=== PATIENT | female | born 1960 ===

== ENCOUNTER → 2020-02-02 12:12 | Outpatient (CLI) | payer MEDICARE, OTHER, SELFPAY ==
[2020-02-03 09:43] LABS: COVID19 Sendout Not Detected (Not Detect)
== END ==
PROVIDERS: Visit Provider Registered Nurse
DX: Z01.812 Encounter for preprocedural laboratory examination (principal)
CPT/HCPCS: 87635

== ENCOUNTER 2020-08-08 09:59 | Inpatient (IN) | payer MEDICARE, OTHER, SELFPAY ==
[2020-08-08] VITALS (19 sets, daily range): BP systolic 110–156; BP diastolic 67–74; PULSE 69–73; RESP 20–37; TEMP 37–37.3; O2SAT 88–100; BMI 19.3; BMI 20.7
--- NOTE | 2020-08-08 10:22 | ED.SOB ---
HPI - SOB/Dyspnea General Chief Complaint: Shortness of Breath/Dyspnea Stated Complaint: SOB Time Seen by Provider: 08/08/20 10:22 Source: patient and EMS Mode of arrival: EMS Limitations: no limitations History of Present Illness HPI Narrative: 60-year-old female comes to the emergency department with complaint of worsening shortness of breath. Patient was hospitalized at [facility] for 6 days, she states she was discharged about 24 hours ago. She states she felt fine prior to discharge and over the last day has significantly worsened and had increasing shortness of breath. She describes increased swelling in her lower extremities. Patient denies fevers, she denies any cough or productive sputum, she does have chest pain centrally. Patient denies any nausea vomiting today but states about 3 days ago she had some vomiting. She has had no diarrhea or constipation. No new urinary issues. Patient is on warfarin, she has a history of atrial fibrillation has a pacemaker, congestive heart failure and aortic valve replacement. Patient also is on home oxygen at 3 L nasal cannula she states she has not had to increase. She is supposed to have BiPAP or CPAP at home but from her description is not regularly compliant with this. She does use Advair at home, and per EMS she had a albuterol nebulizer treatment prior to transfer. Patient states that she had completed her oral antibiotics at [facility] and was not discharged home with any. She does not discharged home with any oral steroids. Her primary care is Dr. Carbajal and her emergency medical dispatcher is through [facility]. Related Data Allergies Allergy/AdvReac Type Severity Reaction Status Date / Time codeine Allergy Verified 08/08/20 11:06 erythromycin base Allergy Verified 08/08/20 11:06 Review of Systems Review of Systems ROS Unobtainable: All systems reviewed & are unremarkable except as noted in HPI and below Patient History Medical History (Updated 08/08/20 @ 18:23 by Yecenia Gold MD) Atrial fibrillation CHF (congestive heart failure) COPD (chronic obstructive pulmonary disease) Pacemaker Pneumonia Surgical History H/O aortic valve replacement Family History (Updated 08/08/20 @ 18:24 by Yecenia Gold MD) Mother Pulmonary fibrosis Social History household members: caregiver Smoking Status: Current every day smoker Exam Narrative Exam Narrative: GEN: Thin female, appears older than her stated age, alert and oriented x 3, patient appears to be in moderate distress. HEENT: Atraumatic, pupils are equal round reactive to light, extraocular movements are intact, nares are clear, TMs are clear with no fluid, there is no conjunctival pallor. Throat is clear without any exudates, erythema, tonsillar enlargement or uvular deviation, HEART: Regular rate and rhythm without murmur, clicks, rubs. LUNGS:Lungs lungs present bilaterally, slightly decreased, no wheezes, rales, crackles, chest moves symmetrically, positive for tachypnea. Speaks in 3-4 word sentences. ABD:bowel sounds normal, soft, non-tender, no guarding, rebound, rigidity, no masses noted, no hepatosplenomegaly :No CVA tenderness MSCL: Non-tender. NEURO:CN 2-12 intact, sensation normal SKIN: Patient has multiple small areas of ecchymosis. Initial Vital Signs Initial Vital Signs: Vital Signs Temperature 98.6 F 08/08/20 10:24 Pulse Rate 70 08/08/20 10:24 Respiratory Rate 24 08/08/20 10:24 Blood Pressure 128/74 08/08/20 10:24 Pulse Oximetry 100 08/08/20 10:24 Course Orders Ordered: ED Orders 08/08/20 11:19 Arterial Blood Gas Stat Blood Culture Stat Complete Blood Count AUTO DIFF Stat Comprehensive Metabolic Panel Stat D Dimer Stat Lactate (Lactic Acid) Stat Magnesium Stat NT-proBNP (BNP-Adult 18+) Stat Partial Thromboplastin Time Stat Procalcitonin Stat Prothrombin Time INR Stat Troponin & CK Cardiac Panel Stat 08/08/20 13:10 CT angio chest PE protocol Stat Acetaminophen (Acetaminophen 325 Mg Tablet) 650 mg PO Q6HR PRN PRN Reason: Fever/Mild Pain (1-3) Hydrocodone Bitart/Acetaminophen (Hydrocodone/Acet 10/325 Tablet) 1 tab PO Q6HR PRN PRN Reason: Pain, Moderate (4-6) Last Admin: 08/08/20 19:22 Dose: 1 tab Documented by: CODY Al Hydrox/Mg Hydrox/Simethicone (Mag Hydrox/Alum/Simeth 30 Ml Udc) 30 ml PO Q6HR PRN PRN Reason: Dyspepsia Albuterol/Ipratropium (Albuterol/Ipratropium 3 Ml Ampul) 3 ml INH [id number] [facility] Amiodarone HCl (Amiodarone 200 Mg Tablet) 100 mg PO DAILY [facility] Budesonide (Budesonide 0.5 Mg/2 Ml Neb) 0.5 mg INH RTBID [facility] Cefdinir (Cefdinir 300 Mg Capsule) 300 mg PO BID [facility] Stop: 08/17/20 18:00 Doxycycline Hyclate (Doxycycline Hyclate 100 Mg Tablet) 100 mg PO BID [facility] Stop: 08/17/20 18:00 Duloxetine HCl (Duloxetine 30 Mg Capsule) 60 mg PO DAILY [facility] Ferrous Sulfate (Ferrous Sulfate 325 Mg Tablet) 325 mg PO DAILY [facility] Furosemide (Furosemide 40 Mg/4 Ml Vial) 40 mg IV Q12HR [facility] Gabapentin (Gabapentin 300 Mg Capsule) 300 mg PO TID [facility] Magnesium Oxide (Magnesium Oxide 400 Mg Tablet) 400 mg PO BID [facility] Metoprolol Succinate (Metoprolol Er 50 Mg Tablet) 50 mg PO BID [facility] Multivitamins (Multivitamin 1 Tablet) 1 tab PO DAILY [facility] Naloxone HCl (Naloxone 0.4 Mg/Ml Vial) 0.2 mg IV Q2MIN PRN PRN Reason: Opiate Reversal Nicotine (Nicotine 21 Mg Patch) 21 mg TOP DAILY [facility] Ondansetron HCl (Ondansetron 4 Mg/2 Ml Inj) 4 mg IV Q8HR PRN PRN Reason: Nausea And Vomiting Pantoprazole Sodium (Pantoprazole 40 Mg Tablet) 40 mg PO DAILY@0700 [facility] Potassium Chloride (Potassium Chloride 20 Meq Tab) 40 meq PO DAILYCC [facility] Pravastatin Sodium (Pravastatin 20 Mg Tablet) 80 mg PO BEDTIME [facility] Prednisone (Prednisone 20 Mg Tablet) 40 mg PO DAILY [facility] Sucralfate (Sucralfate 1 Gm Tablet) 1 gm PO QID [facility] Warfarin Sodium (Warfarin 5 Mg Tablet) 5 mg PO DAILY@1700 [facility] Zolpidem Tartrate (Zolpidem 5 Mg Tablet) 10 mg PO BEDTIME PRN PRN Reason: Sleep Discontinued Medications Albuterol (Albuterol Hfa Mdi 60 Puff/8 Gm Inhaler) 2 puff INH NOW ONE Stop: 08/08/20 10:59 Last Admin: 08/08/20 10:59 Dose: 2 puff Documented by: SOLA Enoxaparin Sodium (Enoxaparin 40 Mg/0.4 Ml Syringe) 40 mg SUBCUT DAILY [facility] Furosemide (Furosemide 40 Mg/4 Ml Vial) 40 mg IV NOW ONE Stop: 08/08/20 13:58 Last Admin: 08/08/20 14:10 Dose: 40 mg Documented by: SARY Magnesium Sulfate (Magnesium Sulfate) 2 gm in 50 mls @ 25 mls/hr IV NOW ONE Stop: 08/08/20 12:34 Last Infusion: 08/08/20 14:17 Dose: 0 mls/hr Documented by: SARY Cosigned by: NURY Admin: 08/08/20 10:47 Dose: 25 mls/hr Documented by: SARY Cosigned by: BERNIE Methylprednisolone (Methylprednisolone 125 Mg/2 Ml Vial) 125 mg IV NOW ONE Stop: 08/08/20 10:36 Last Admin: 08/08/20 10:50 Dose: 125 mg Documented by: SARY Morphine Sulfate (Morphine 4 Mg/Ml Inj) 4 mg IV NOW ONE Stop: 08/08/20 12:02 Last Admin: 08/08/20 13:00 Dose: 4 mg Documented by: SARY Ondansetron HCl (Ondansetron 4 Mg/2 Ml Inj) 4 mg IV NOW ONE Stop: 08/08/20 13:18 Last Admin: 08/08/20 14:10 Dose: 4 mg Documented by: SARY Zolpidem Tartrate (Zolpidem 5 Mg Tablet) 5 mg PO BEDTIME PRN PRN Reason: Sleep Consultations Consultation #1: Dr. Gold accepts for observation. Patient's only major abnormalities are her BNP is elevated from comparison to would be which was 1064 her hemoglobin is stable at was 9.2 at [facility], white count was 3 with a crit of 32. Patient CT today does not show pulmonary edema, shows some mild bronchitis like changes more consistent with COPD. Patient does not have a PE. Troponin is negative. Patient was given Lasix, Solu-Medrol as well as albuterol with minimal improvement. Time: 14:29 Vital Signs Vital signs: Vital Signs - 8 hr 08/08/20 12:31 08/08/20 13:00 08/08/20 13:03 Pulse Rate 73 69 69 Respiratory Rate 27 H 29 H 32 H Blood Pressure 156/74 H Pulse Oximetry 98 96 08/08/20 13:30 08/08/20 14:00 08/08/20 14:31 Pulse Rate 69 69 72 Respiratory Rate 33 H 35 H 37 H Blood Pressure Pulse Oximetry 98 96 88 L MDM - SOB/Dyspnea Lab Data Attestation: I reviewed the patient's lab results. Result diagrams: 08/08/20 11:19 08/08/20 11:19 Labs: Lab Results 08/08/20 08/08/20 08/08/20 Range/Units 10:34 10:39 11:19 WBC 3.3 L (4.5-11.0) X10^3/uL RBC 3.58 L (4.0-5.2) X10^6/uL Hgb 10.0 L (12.0-16.0) g/dL Hct 31.6 L (36-46) % MCV 88.3 (80-100) fL MCH 28.0 (26-34) PG MCHC 31.7 (30-36) % RDW 18.1 H (11.6-14.8) % Plt Count 82 L (150-400) X10^3/uL Neut % (Auto) 63.9 (50-75) % Lymph % (Auto) 21.3 L (25-40) % [place] % (Auto) 13.8 (3-14) % Eos % (Auto) 0.2 L (2-4) % Baso % (Auto) 0.8 (0-2) % Neut # (Auto) 2100 (7738-3956) /uL Lymph # (Auto) 700 L (1117-2452) /uL [place] # (Auto) 500 (0-900) /uL Eos # (Auto) 0 (0-450) /uL Baso # (Auto) 0 (0-100) /uL RBC Morphology See below Poikilocytosis 1+ H Anisocytosis 1+ H Ovalocytes 1+ H PT (10.1-12.7) SECONDS INR (0.9-1.3) APTT (26.4-36.2) SECONDS D-Dimer (<230) ng/mL ABG pH (7.35-7.45) ABG pCO2 (35-45) mmHg ABG pO2 (80-100) mmHg ABG HCO3 (22-26) mmol/L ABG Total CO2 (21-31) mmol/L ABG O2 Saturation (95-100) % ABG Base Excess (-2-2) mmol/L FiO2 Sodium (137-145) mmol/L Potassium (3.4-5.1) mmol/L Chloride (98-107) mmol/L Carbon Dioxide (22-32) mmol/L BUN (7-17) mg/dL Creatinine (0.52-1.04) mg/dL Estimated GFR (>60) mL/min BUN/Creatinine Ratio (6-22) Glucose (80-110) mg/dL Lactate (0.7-2.1) mmol/L Calcium (8.4-10.2) mg/dL Magnesium (1.6-2.3) mg/dL Total Bilirubin (0.2-1.3) mg/dL AST (14-36) IU/L ALT (<35) IU/L Alkaline Phosphatase (38-126) U/L Total Creatine Kinase (30-135) U/L CK-MB (CK-2) CK-MB (CK-2) Rel Index Troponin I (0.01-0.034) ng/mL NT-Pro-B Natriuret Pep (<125) pg/mL Total Protein (6.3-8.2) g/dL Albumin (3.5-5.0) g/dL Globulin (1.7-4.1) g/dL Albumin/Globulin Ratio (1.0-2.8) Procalcitonin (<0.5) ng/mL Urine RBC 5-10/hpf H (0-5/HPF) Urine WBC 1-5/hpf (0-5/HPF) Ur Squamous Epith Cells 5-10 /hpf H (0-5/HPF) Urine Bacteria None seen (None) Ur Culture Indicated? Cult not indicated COVID-19 PCR Negative (Negative) 08/08/20 08/08/20 08/08/20 Range/Units 11:19 11:19 11:19 WBC (4.5-11.0) X10^3/uL RBC (4.0-5.2) X10^6/uL Hgb (12.0-16.0) g/dL Hct (36-46) % MCV (80-100) fL MCH (26-34) PG MCHC (30-36) % RDW (11.6-14.8) % Plt Count (150-400) X10^3/uL Neut % (Auto) (50-75) % Lymph % (Auto) (25-40) % [place] % (Auto) (3-14) % Eos % (Auto) (2-4) % Baso % (Auto) (0-2) % Neut # (Auto) (0247-2398) /uL Lymph # (Auto) (8410-6525) /uL [place] # (Auto) (0-900) /uL Eos # (Auto) (0-450) /uL Baso # (Auto) (0-100) /uL RBC Morphology Poikilocytosis Anisocytosis Ovalocytes PT 16.2 H (10.1-12.7) SECONDS INR 1.4 H (0.9-1.3) APTT 32 (26.4-36.2) SECONDS D-Dimer < 200 (<230) ng/mL ABG pH (7.35-7.45) ABG pCO2 (35-45) mmHg ABG pO2 (80-100) mmHg ABG HCO3 (22-26) mmol/L ABG Total CO2 (21-31) mmol/L ABG O2 Saturation (95-100) % ABG Base Excess (-2-2) mmol/L FiO2 Sodium (137-145) mmol/L Potassium (3.4-5.1) mmol/L Chloride (98-107) mmol/L Carbon Dioxide (22-32) mmol/L BUN (7-17) mg/dL Creatinine (0.52-1.04) mg/dL Estimated GFR (>60) mL/min BUN/Creatinine Ratio (6-22) Glucose (80-110) mg/dL Lactate (0.7-2.1) mmol/L Calcium (8.4-10.2) mg/dL Magnesium 1.8 (1.6-2.3) mg/dL Total Bilirubin (0.2-1.3) mg/dL AST (14-36) IU/L ALT (<35) IU/L Alkaline Phosphatase (38-126) U/L Total Creatine Kinase 26 L (30-135) U/L CK-MB (CK-2) TNP CK-MB (CK-2) Rel Index TNP Troponin I < 0.012 (0.01-0.034) ng/mL NT-Pro-B Natriuret Pep (<125) pg/mL Total Protein (6.3-8.2) g/dL Albumin (3.5-5.0) g/dL Globulin (1.7-4.1) g/dL Albumin/Globulin Ratio (1.0-2.8) Procalcitonin < 0.05 (<0.5) ng/mL Urine RBC (0-5/HPF) Urine WBC (0-5/HPF) Ur Squamous Epith Cells (0-5/HPF) Urine Bacteria (None) Ur Culture Indicated? COVID-19 PCR (Negative) 08/08/20 08/08/20 08/08/20 Range/Units 11:19 11:19 11:19 WBC (4.5-11.0) X10^3/uL RBC (4.0-5.2) X10^6/uL Hgb (12.0-16.0) g/dL Hct (36-46) % MCV (80-100) fL MCH (26-34) PG MCHC (30-36) % RDW (11.6-14.8) % Plt Count (150-400) X10^3/uL Neut % (Auto) (50-75) % Lymph % (Auto) (25-40) % [place] % (Auto) (3-14) % Eos % (Auto) (2-4) % Baso % (Auto) (0-2) % Neut # (Auto) (9562-1473) /uL Lymph # (Auto) (9712-3673) /uL [place] # (Auto) (0-900) /uL Eos # (Auto) (0-450) /uL Baso # (Auto) (0-100) /uL RBC Morphology Poikilocytosis Anisocytosis Ovalocytes PT (10.1-12.7) SECONDS INR (0.9-1.3) APTT (26.4-36.2) SECONDS D-Dimer (<230) ng/mL ABG pH 7.43 (7.35-7.45) ABG pCO2 62.2 H* (35-45) mmHg ABG pO2 68 L (80-100) mmHg ABG HCO3 41 H (22-26) mmol/L ABG Total CO2 43 H (21-31) mmol/L ABG O2 Saturation 93 L (95-100) % ABG Base Excess 17.0 H (-2-2) mmol/L FiO2 32 Sodium 137 (137-145) mmol/L Potassium 4.0 (3.4-5.1) mmol/L Chloride 92 L (98-107) mmol/L Carbon Dioxide 39 H (22-32) mmol/L BUN 14 (7-17) mg/dL Creatinine 0.29 L (0.52-1.04) mg/dL Estimated GFR > 60.0 (>60) mL/min BUN/Creatinine Ratio 48.3 H (6-22) Glucose 92 (80-110) mg/dL Lactate 1.1 (0.7-2.1) mmol/L Calcium 8.9 (8.4-10.2) mg/dL Magnesium (1.6-2.3) mg/dL Total Bilirubin 0.9 (0.2-1.3) mg/dL AST 33 (14-36) IU/L ALT 18 (<35) IU/L Alkaline Phosphatase 81 (38-126) U/L Total Creatine Kinase (30-135) U/L CK-MB (CK-2) CK-MB (CK-2) Rel Index Troponin I (0.01-0.034) ng/mL NT-Pro-B Natriuret Pep (<125) pg/mL Total Protein 6.5 (6.3-8.2) g/dL Albumin 3.8 (3.5-5.0) g/dL Globulin 2.7 (1.7-4.1) g/dL Albumin/Globulin Ratio 1.4 (1.0-2.8) Procalcitonin (<0.5) ng/mL Urine RBC (0-5/HPF) Urine WBC (0-5/HPF) Ur Squamous Epith Cells (0-5/HPF) Urine Bacteria (None) Ur Culture Indicated? COVID-19 PCR (Negative) 08/08/20 08/08/20 Range/Units 11:19 11:19 WBC (4.5-11.0) X10^3/uL RBC (4.0-5.2) X10^6/uL Hgb (12.0-16.0) g/dL Hct (36-46) % MCV (80-100) fL MCH (26-34) PG MCHC (30-36) % RDW (11.6-14.8) % Plt Count (150-400) X10^3/uL Neut % (Auto) (50-75) % Lymph % (Auto) (25-40) % [place] % (Auto) (3-14) % Eos % (Auto) (2-4) % Baso % (Auto) (0-2) % Neut # (Auto) (5473-1756) /uL Lymph # (Auto) (2055-0259) /uL [place] # (Auto) (0-900) /uL Eos # (Auto) (0-450) /uL Baso # (Auto) (0-100) /uL RBC Morphology Poikilocytosis Anisocytosis Ovalocytes PT Cancelled (10.1-12.7) SECONDS INR Cancelled (0.9-1.3) APTT Cancelled (26.4-36.2) SECONDS D-Dimer (<230) ng/mL ABG pH (7.35-7.45) ABG pCO2 (35-45) mmHg ABG pO2 (80-100) mmHg ABG HCO3 (22-26) mmol/L ABG Total CO2 (21-31) mmol/L ABG O2 Saturation (95-100) % ABG Base Excess (-2-2) mmol/L FiO2 Sodium (137-145) mmol/L Potassium (3.4-5.1) mmol/L Chloride (98-107) mmol/L Carbon Dioxide (22-32) mmol/L BUN (7-17) mg/dL Creatinine (0.52-1.04) mg/dL Estimated GFR (>60) mL/min BUN/Creatinine Ratio (6-22) Glucose (80-110) mg/dL Lactate (0.7-2.1) mmol/L Calcium (8.4-10.2) mg/dL Magnesium (1.6-2.3) mg/dL Total Bilirubin (0.2-1.3) mg/dL AST (14-36) IU/L ALT (<35) IU/L Alkaline Phosphatase (38-126) U/L Total Creatine Kinase (30-135) U/L CK-MB (CK-2) CK-MB (CK-2) Rel Index Troponin I (0.01-0.034) ng/mL NT-Pro-B Natriuret Pep 3790 H (<125) pg/mL Total Protein (6.3-8.2) g/dL Albumin (3.5-5.0) g/dL Globulin (1.7-4.1) g/dL Albumin/Globulin Ratio (1.0-2.8) Procalcitonin (<0.5) ng/mL Urine RBC (0-5/HPF) Urine WBC (0-5/HPF) Ur Squamous Epith Cells (0-5/HPF) Urine Bacteria (None) Ur Culture Indicated? COVID-19 PCR (Negative) Urine Dip Bedside Urine Glucose Negative Bedside Urine Bilirubin + 1 Bedside Urine Ketone +++ 80 Urine Specific [place] 1.015 Bedside Urine Occult Blood - Negative Bedside Urine pH 7.5 Bedside Urine Protein + 30 Bedside Urine Urobilinogen 1+ 2mg Bedside Urine Leukocytes +/- 15 Esterase Imaging Data Chest x-ray: Radiologist's Impression: [address] [id number] ReportSigned Patient: Francia GillMR#: [id number]: 1960Acct:[id number]/Sex: 60 / FDate of Service: 08/08/20Loc: EDAccession Number: [id number] Procedure: XR chest 1V Ordering Provider: Lupe Trotter D.O. PROCEDURE: XR CHEST 1V INDICATIONS: Short of breath, recent pna, hx chf pacemaker TECHNIQUE: One view of the chest was acquired. COMPARISON: [facility], CR, XR CHEST 2 VIEWS, 09/05/2018, 11:22. [facility], CR, XR CHEST 2 VIEWS, 07/12/2018, 10:05. [facility], CR, XR CHEST 1 VIEW, 12/29/2019, 19:48. FINDINGS: Surgical changes and devices: An AICD is seen. The leads are seen in stable positions. Lungs and pleura: Poorly defined opacity is seen within the medial right lung, which is more prominent on the current study than on the prior. There is a small right-sided pleural effusion. The lungs otherwise appear clear, yet they are hyperexpanded. No pneumothorax. Mediastinum: There is moderate cardiomegaly. Bones and chest wall: No suspicious bony lesions. Age-appropriate bony degenerative changes are seen. Overlying soft tissues appear unremarkable. IMPRESSION: Right medial lung consolidation. Please consider infiltrate versus recurrent atelectasis. Small right-sided pleural effusion. Please consider short-term follow-up. Postoperative and degenerative changes are seen. No Dictated by: Cameron Donis M.D. on 08/08/2020 at 10:03 Approved by: Cameron Donis M.D. on 08/08/2020 at 10:05 CT scan - chest: Radiologist's Impression: [address] [id number] Scan ReportSigned Patient: Francia Gill [facility]#: [id number]: 1960Acct:[id number]/Sex: 60 / FDate of Service: 08/08/20Loc: EDAccession Number: [id number] Procedure: CT angio chest PE protocol Ordering Provider: Lupe Trotter D.O. PROCEDURE: CT ANGIO CHEST PE PROTOCOL INDICATIONS: chest pain, sob TECHNIQUE: After the administration of intravenous contrast, 2 mm thick sections acquired from the pulmonary apices to the posterior costophrenic angles. 3-dimensional maximum intensity projection (MIP) coronal and sagittal reformats were then acquired through the thorax. For radiation dose reduction, the following was used: automated exposure control, adjustment of mA and/or kV according to patient size. COMPARISON: None. FINDINGS: Image quality: Excellent. Pulmonary arteries: Pulmonary arteries are normal in size, and demonstrate no intraluminal filling defects to suggest central pulmonary embolism. Lungs and pleura: Small right pleural effusion. Scattered subsegmental atelectasis and/or scarring. No focal consolidation. Diffuse emphysema. Airway thickening in keeping with nonspecific bronchitis and/or reactive airways disease. emphysema. Mediastinum: Heart size is enlarged, without pericardial effusion. Coronary artery calcifications are present. Shot[place] 1 cm mediastinal and hilar lymph nodes are noted, technically nonspecific main pulmonary artery is enlarged measuring 4.1 cm. The right and left pulmonary arteries are also enlarged. Esophagus is normal in caliber, without hiatal hernia. Bones and chest wall: No suspicious bony lesions. Ribs and thoracic spine appear intact throughout. Thyroid is grossly unremarkable No axillary or supraclavicular adenopathy. Abdomen: Visualized upper abdominal solid organs appear normal in the early arterial phase of enhancement. IMPRESSION: No evidence of pulmonary embolism. No aortic dissection identified. Enlargement of the central pulmonary arteries suggestive pulmonary arterial hypertension Marked cardiomegaly Coronary artery disease Small right pleural effusion with adjacent atelectasis Airway thickening in keeping with nonspecific bronchitis and/or reactive airways disease. Dictated by: Kd Sharma M.D. on 08/08/2020 at 13:32 Approved by: Kd Sharma M.D. on 08/08/2020 at 13:38 ECG Data Attestation: I personally reviewed and interpreted this ECG as follows: Prior ECG tracings: available for review Interpretation: Ventricularly paced rhythm, rate of 75, QRS 188, QTC 553. No priors available for review in cardio cafe server. Patient does have an EKG in records from [facility] which appears similar except for PVCs otherwise ST segments and ventricularly paced rhythm of med EKG at 70 with a QRS of 176 and a QTC of 539. MDM Narrative Medical decision making narrative: Patient's chest x-ray report from [facility], I do not have access to the images also showed an infiltrate on her chest x-ray on 08/07 20. She had a prior chest x-ray on 07/28/2020 which did not show infiltrate at that time. It is noted in the chart that it was the right middle and lower lobe, her chest x-ray. Patient has some changes on CT that this for more COPD. No pulmonary emboli. No pulmonary edema although her BNP is elevated today in comparison to her visit at [facility]. Patient continues to be tachypneic and complaining of shortness of breath her troponin is negative. She does not appear to have ACS on her EKG or evaluation. Has a respiratory acidosis that appears compensated. COVID swab is negative today. Discharge Plan Departure Patient Disposition: Admitted as Observation Clinical Impression: Acute exacerbation of chronic obstructive pulmonary disease, CHF (congestive heart failure) Admit Date/Time: 08/08/20 14:35 Admit Provider: Yecenia Gold
--- NOTE | 2020-08-08 10:37 | DI.RAD.S_ITS ---
PROCEDURE: XR CHEST 1V INDICATIONS: Short of breath, recent pna, hx chf pacemaker TECHNIQUE: One view of the chest was acquired. COMPARISON: [facility], CR, XR CHEST 2 VIEWS, 09/05/2018, 11:22. [facility], CR, XR CHEST 2 VIEWS, 07/12/2018, 10:05. [facility], CR, XR CHEST 1 VIEW, 12/29/2019, 19:48. FINDINGS: Surgical changes and devices: An AICD is seen. The leads are seen in stable positions. Lungs and pleura: Poorly defined opacity is seen within the medial right lung, which is more prominent on the current study than on the prior. There is a small right-sided pleural effusion. The lungs otherwise appear clear, yet they are hyperexpanded. No pneumothorax. Mediastinum: There is moderate cardiomegaly. Bones and chest wall: No suspicious bony lesions. Age-appropriate bony degenerative changes are seen. Overlying soft tissues appear unremarkable. IMPRESSION: Right medial lung consolidation. Please consider infiltrate versus recurrent atelectasis. Small right-sided pleural effusion. Please consider short-term follow-up. Postoperative and degenerative changes are seen. No Dictated by: Cameron Donis M.D. on 08/08/2020 at 10:03 Approved by: Cameron Donis M.D. on 08/08/2020 at 10:05
[2020-08-08 10:47] LABS: Bacteria Urine None Seen
[2020-08-08] MEDS: MAGNESIUM SULFATE 2 GM/50 ML PIGGYBACK IV (10:47)
[2020-08-08] MEDS: methylPREDNISolone 125 MG/2 ML VIAL IV (10:50)
[2020-08-08 10:58] LABS: RBC Urine 5-10/HPF (0-5/HPF); WBC Urine 1-5/HPF (0-5/HPF)
[2020-08-08 10:59] LABS: Culture Indicated Urine Cult Not Indicated; Squamous Epithelial Cell Urine 5-10 /HPF (0-5/HPF)
[2020-08-08] MEDS: ALBUTEROL HFA MDI 60 PUFF/8 GM INHALER INH (10:59)
[2020-08-08 11:09] LABS: COVID19 -Nasal RAPID Negative (Negative)
[2020-08-08 11:28] LABS: pH ABG 7.43 (7.35-7.45)
[2020-08-08 11:29] LABS: Fractionated Inspired Oxygen 32; HCO3 ABG 41 mmol/L (22-26); Oxygen Saturation ABG 93 % (95-100); PCO2 ABG 62.2 mmHg (35-45); PO2 ABG 68 mmHg (80-100); TCO2 ABG 43 mmol/L (21-31)
[2020-08-08 11:33] LABS: Basophils Absolute Auto 0 /uL (0-100); Basophils Percent Auto 0.8 % (0-2); Eosinophils Absolute Auto 0 /uL (0-450); Eosinophils Percent Auto 0.2 % (2-4); Hematocrit 31.6 % (36-46); Lymphocytes Absolute Auto 700 /uL (1100-4500); Lymphocytes Percent Auto 21.3 % (25-40); Mean Corpuscular HGB Conc 31.7 % (30-36); Mean Corpuscular Volume 88.3 fL (80-100); Monocytes Absolute Auto 500 /uL (0-900); Monocytes Percent Auto 13.8 % (3-14); Neutrophils Absolute Auto 2100 /uL (1500-7000); Neutrophils Percent Auto 63.9 % (50-75); Platelet Count 82 X10^3/uL (150-400); Red Blood Cell Count 3.58 X10^6/uL (4.0-5.2); Red Cell Distribution Width 18.1 % (11.6-14.8); White Blood Cell Count 3.3 X10^3/uL (4.5-11.0)
[2020-08-08 11:39] LABS: Creatine Kinase 26 U/L (30-135); Magnesium 1.8 mg/dL (1.6-2.3)
[2020-08-08 11:41] LABS: Alanine Aminotransferase 18 IU/L (<35); Albumin 3.8 g/dL (3.5-5.0); Albumin Globulin Ratio 1.4 (1.0-2.8); Alkaline Phosphatase 81 U/L (38-126); Aspartate Aminotransferase 33 IU/L (14-36); BUN Creatinine Ratio 48.3 (6-22); Bilirubin Total 0.9 mg/dL (0.2-1.3); Blood Urea Nitrogen 14 mg/dL (7-17); Calcium 8.9 mg/dL (8.4-10.2); Chloride 92 mmol/L (98-107); Estimated Glomerular Filt Rate > 60.0 mL/min (>60); Globulin 2.7 g/dL (1.7-4.1); Glucose 92 mg/dL (80-110); HEMOLYSIS < 15 (0-50); Lactate (Lactic Acid) 1.1 mmol/L (0.7-2.1); Sodium 137 mmol/L (137-145); Total Protein 6.5 g/dL (6.3-8.2)
[2020-08-08 11:43] LABS: Carbon Dioxide 39 mmol/L (22-32)
[2020-08-08 11:44] LABS: Add Manual Diff / Slide Review SLIDE REVIEW
[2020-08-08 11:46] LABS: INR 1.4 (0.9-1.3); Prothrombin Time 16.2 SECONDS (10.1-12.7)
[2020-08-08 11:49] LABS: PTT Partial Thromboplastin Tim 32 SECONDS (26.4-36.2)
[2020-08-08 11:51] LABS: D Dimer < 200 ng/mL (<230)
[2020-08-08 11:52] LABS: Troponin I < 0.012 ng/mL (0.01-0.034)
[2020-08-08 11:54] LABS: Procalcitonin < 0.05 ng/mL (<0.5)
[2020-08-08 11:57] LABS: NT-proBNP (BNP-Adult 18+) 3790 pg/mL (<125)
[2020-08-08 12:20] LABS: Anisocytosis 1+
[2020-08-08 12:21] LABS: Ovalocytes 1+; Poikilocytosis 1+
[2020-08-08] MEDS: MORPHINE 4 MG/ML INJ IV (13:00)
--- NOTE | 2020-08-08 13:10 | DI.CT.S_ITS ---
PROCEDURE: CT ANGIO CHEST PE PROTOCOL INDICATIONS: chest pain, sob TECHNIQUE: After the administration of intravenous contrast, 2 mm thick sections acquired from the pulmonary apices to the posterior costophrenic angles. 3-dimensional maximum intensity projection (MIP) coronal and sagittal reformats were then acquired through the thorax. For radiation dose reduction, the following was used: automated exposure control, adjustment of mA and/or kV according to patient size. COMPARISON: None. FINDINGS: Image quality: Excellent. Pulmonary arteries: Pulmonary arteries are normal in size, and demonstrate no intraluminal filling defects to suggest central pulmonary embolism. Lungs and pleura: Small right pleural effusion. Scattered subsegmental atelectasis and/or scarring. No focal consolidation. Diffuse emphysema. Airway thickening in keeping with nonspecific bronchitis and/or reactive airways disease. emphysema. Mediastinum: Heart size is enlarged, without pericardial effusion. Coronary artery calcifications are present. Shotty 1 cm mediastinal and hilar lymph nodes are noted, technically nonspecific main pulmonary artery is enlarged measuring 4.1 cm. The right and left pulmonary arteries are also enlarged. Esophagus is normal in caliber, without hiatal hernia. Bones and chest wall: No suspicious bony lesions. Ribs and thoracic spine appear intact throughout. Thyroid is grossly unremarkable No axillary or supraclavicular adenopathy. Abdomen: Visualized upper abdominal solid organs appear normal in the early arterial phase of enhancement. IMPRESSION: No evidence of pulmonary embolism. No aortic dissection identified. Enlargement of the central pulmonary arteries suggestive pulmonary arterial hypertension Marked cardiomegaly Coronary artery disease Small right pleural effusion with adjacent atelectasis Airway thickening in keeping with nonspecific bronchitis and/or reactive airways disease. Dictated by: Kd Sharma M.D. on 08/08/2020 at 13:32 Approved by: Kd Sharma M.D. on 08/08/2020 at 13:38
[2020-08-08] MEDS: ONDANSETRON 4 MG/2 ML INJ IV (14:10)
[2020-08-08] MEDS: FUROSEMIDE 40 MG/4 ML VIAL IV (14:10)
[2020-08-08] MEDS: ALBUTEROL INH (14:19)
--- NOTE | 2020-08-08 14:45 | PC.NURSE ---
patient 02 sat was 95% on 3 Liters NC. She became more talkative and starting to drop her 02 saturation to 88%. She is currently at 95% 3 Liters, NC.
--- NOTE | 2020-08-08 18:02 | PM.HP.1 ---
History of Present Illness History of Present Illness Date Patient Seen: 08/08/20 Chief complaint: SOB Narrative: The patient is a 60-year-old female with a history of congenital heart disease, mechanical aortic valve, history of chronic respiratory failure secondary to COPD on 3 L of home oxygen , chronic atrial fibrillation pacemaker placement who was discharged from [facility] 2 days ago after treatment of pneumonia and COPD. The patient was hospitalized at [facility] 07 28 for COPD. The patient received 1 week of levofloxacin. On 07/28 her x-ray showed no infiltrate. She presented to the hospital again for increasing shortness of breath and chest pain. The patient received a GI cocktail without improvement. She got 2 mg of morphine which helped. Her chest x-ray at that time showed a new infiltrate in the right lower lobe and right middle lobe. Her proBNP was improved at 1000. She had a normal white count. She was admitted to the hospital at [facility] for further evaluation. In the hospital she was treated with antibiotics for pneumonia. She was also given prednisone for COPD exacerbation. The patient was discharged home on doxycycline cefdinir and prednisone. She reports she has not picked up those medications. She presented to [facility] with a complaint of increased swelling, orthopnea, and shortness of breath. At [facility] her chest x-ray was essentially unchanged. However her proBNP was elevated at 3700. She was given 1 dose of Lasix. She remained short of breath and tachypneic. She was admitted to the hospital for further evaluation. In the emergency room an EKG was obtained. She has a ventricular paced rhythm with occasional PVCs. The patient's primary care providers Dr. Carbajal and indoor sports centre manager is Dr. Vidal at [facility]. She is admitted to the hospital for further evaluation. Patient has chronic blurred vision, but denies headache, nausea, vomiting. She has had orthopnea shortness of breath. She denies any palpitations or chest pain. She has had no hematemesis melena or bright red blood per rectum. Patient reports recent hospitalization showed an ulcer in her abdomen. She denies any dysuria hematuria or pyuria. Further review of system is negative. Patient History Medical History (Updated 08/08/20 @ 18:23 by Yecenia Gold MD) Atrial fibrillation CHF (congestive heart failure) COPD (chronic obstructive pulmonary disease) Pacemaker Pneumonia Surgical History H/O aortic valve replacement Family & Social History Family History (Updated 08/08/20 @ 18:24 by Yecenia Gold MD) Mother Pulmonary fibrosis Safety & Behavioral: Feels Safe in Current Yes Environment Been Physically Hurt or No Threatened By a Person Tobacco & Substance use: Smoking Status Current every day smoker alcohol intake frequency 0-2 drinks per day Substance Use Type does not use Meds Home Medications and Allergies Allergies Allergy/AdvReac Type Severity Reaction Status Date / Time codeine Allergy Verified 08/08/20 11:06 erythromycin base Allergy Verified 08/08/20 11:06 Review of Systems Review of Systems ROS: Yes All systems reviewed with the patient and are negative except as otherwise documented Exam Vital Signs (past 8 hours): - 08/08/20 10:24 08/08/20 10:25 08/08/20 10:28 Temperature 98.6 F Pulse Rate 70 72 69 Respiratory Rate 24 Blood Pressure 128/74 Pulse Oximetry 100 99 08/08/20 10:30 08/08/20 11:00 08/08/20 11:13 Temperature Pulse Rate 70 70 70 Respiratory Rate 24 Blood Pressure 115/67 148/70 H Pulse Oximetry 96 97 97 08/08/20 11:30 08/08/20 12:00 08/08/20 12:31 Temperature Pulse Rate 70 70 73 Respiratory Rate 27 H Blood Pressure Pulse Oximetry 97 95 08/08/20 13:00 08/08/20 13:03 08/08/20 13:30 Temperature Pulse Rate 69 69 69 Respiratory Rate 29 H 32 H 33 H Blood Pressure 156/74 H Pulse Oximetry 98 96 98 08/08/20 14:00 08/08/20 14:31 08/08/20 15:35 Temperature 99.1 F Pulse Rate 69 72 71 Respiratory Rate 35 H 37 H 24 Blood Pressure 131/72 Pulse Oximetry 96 88 L 98 Oxygen Delivery Method Nasal Cannula Oxygen Flow Rate 4 Narrative Exam Narrative: Ill-appearing female sitting in a chair HEENT: Normocephalic atraumatic, extraocular muscles are intact, oropharynx reveals moist mucous membranes neck is supple without adenopathy Lungs: Decreased breath sounds bilaterally, occasional scattered rhonchi, no crackles appreciated Cardiac exam: Irregularly irregular, normal S1-S2, 3/6 blowing systolic ejection murmur Chest wall, well-healed left-sided scapular incision Abdomen: Soft nontender nondistended no appreciable hepatosplenomegaly Extremities: 2+ pitting pedal edema bilaterally Neuro exam: Nonfocal Psychiatric exam patient is awake alert appropriate, no hallucinations, no delusions, Skin exam: Multiple bruises of the upper extremity with ecchymoses, of the hands arms from prior needle sticks and injuries Objective Labs Result Diagrams: 08/08/20 11:19 08/08/20 11:19 Labs: Laboratory Results - last 24 hr 08/08/20 08/08/20 08/08/20 10:34 10:39 11:19 WBC 3.3 L RBC 3.58 L Hgb 10.0 L Hct 31.6 L MCV 88.3 MCH 28.0 MCHC 31.7 RDW 18.1 H Plt Count 82 L Neut % (Auto) 63.9 Lymph % (Auto) 21.3 L [place] % (Auto) 13.8 Eos % (Auto) 0.2 L Baso % (Auto) 0.8 Neut # (Auto) 2100 Lymph # (Auto) 700 L [place] # (Auto) 500 Eos # (Auto) 0 Baso # (Auto) 0 RBC Morphology See below Poikilocytosis 1+ H Anisocytosis 1+ H Ovalocytes 1+ H PT INR APTT D-Dimer ABG pH ABG pCO2 ABG pO2 ABG HCO3 ABG Total CO2 ABG O2 Saturation ABG Base Excess FiO2 Sodium Potassium Chloride Carbon Dioxide BUN Creatinine Estimated GFR BUN/Creatinine Ratio Glucose Lactate Calcium Magnesium Total Bilirubin AST ALT Alkaline Phosphatase Total Creatine Kinase CK-MB (CK-2) CK-MB (CK-2) Rel Index Troponin I NT-Pro-B Natriuret Pep Total Protein Albumin Globulin Albumin/Globulin Ratio Procalcitonin Urine RBC 5-10/hpf H Urine WBC 1-5/hpf Ur Squamous Epith Cells 5-10 /hpf H Urine Bacteria None seen Ur Culture Indicated? Cult not indicated COVID-19 PCR Negative 08/08/20 08/08/20 08/08/20 11:19 11:19 11:19 WBC RBC Hgb Hct MCV MCH MCHC RDW Plt Count Neut % (Auto) Lymph % (Auto) [place] % (Auto) Eos % (Auto) Baso % (Auto) Neut # (Auto) Lymph # (Auto) [place] # (Auto) Eos # (Auto) Baso # (Auto) RBC Morphology Poikilocytosis Anisocytosis Ovalocytes PT 16.2 H INR 1.4 H APTT 32 D-Dimer < 200 ABG pH ABG pCO2 ABG pO2 ABG HCO3 ABG Total CO2 ABG O2 Saturation ABG Base Excess FiO2 Sodium Potassium Chloride Carbon Dioxide BUN Creatinine Estimated GFR BUN/Creatinine Ratio Glucose Lactate Calcium Magnesium 1.8 Total Bilirubin AST ALT Alkaline Phosphatase Total Creatine Kinase 26 L CK-MB (CK-2) TNP CK-MB (CK-2) Rel Index TNP Troponin I < 0.012 NT-Pro-B Natriuret Pep Total Protein Albumin Globulin Albumin/Globulin Ratio Procalcitonin < 0.05 Urine RBC Urine WBC Ur Squamous Epith Cells Urine Bacteria Ur Culture Indicated? COVID-19 PCR 08/08/20 08/08/20 08/08/20 11:19 11:19 11:19 WBC RBC Hgb Hct MCV MCH MCHC RDW Plt Count Neut % (Auto) Lymph % (Auto) [place] % (Auto) Eos % (Auto) Baso % (Auto) Neut # (Auto) Lymph # (Auto) [place] # (Auto) Eos # (Auto) Baso # (Auto) RBC Morphology Poikilocytosis Anisocytosis Ovalocytes PT INR APTT D-Dimer ABG pH 7.43 ABG pCO2 62.2 H* ABG pO2 68 L ABG HCO3 41 H ABG Total CO2 43 H ABG O2 Saturation 93 L ABG Base Excess 17.0 H FiO2 32 Sodium 137 Potassium 4.0 Chloride 92 L Carbon Dioxide 39 H BUN 14 Creatinine 0.29 L Estimated GFR > 60.0 BUN/Creatinine Ratio 48.3 H Glucose 92 Lactate 1.1 Calcium 8.9 Magnesium Total Bilirubin 0.9 AST 33 ALT 18 Alkaline Phosphatase 81 Total Creatine Kinase CK-MB (CK-2) CK-MB (CK-2) Rel Index Troponin I NT-Pro-B Natriuret Pep Total Protein 6.5 Albumin 3.8 Globulin 2.7 Albumin/Globulin Ratio 1.4 Procalcitonin Urine RBC Urine WBC Ur Squamous Epith Cells Urine Bacteria Ur Culture Indicated? COVID-19 PCR 08/08/20 08/08/20 11:19 11:19 WBC RBC Hgb Hct MCV MCH MCHC RDW Plt Count Neut % (Auto) Lymph % (Auto) [place] % (Auto) Eos % (Auto) Baso % (Auto) Neut # (Auto) Lymph # (Auto) [place] # (Auto) Eos # (Auto) Baso # (Auto) RBC Morphology Poikilocytosis Anisocytosis Ovalocytes PT Cancelled INR Cancelled APTT Cancelled D-Dimer ABG pH ABG pCO2 ABG pO2 ABG HCO3 ABG Total CO2 ABG O2 Saturation ABG Base Excess FiO2 Sodium Potassium Chloride Carbon Dioxide BUN Creatinine Estimated GFR BUN/Creatinine Ratio Glucose Lactate Calcium Magnesium Total Bilirubin AST ALT Alkaline Phosphatase Total Creatine Kinase CK-MB (CK-2) CK-MB (CK-2) Rel Index Troponin I NT-Pro-B Natriuret Pep 3790 H Total Protein Albumin Globulin Albumin/Globulin Ratio Procalcitonin Urine RBC Urine WBC Ur Squamous Epith Cells Urine Bacteria Ur Culture Indicated? COVID-19 PCR Assessment & Plan Assessment & Plan narrative: 1. 60-year-old female admitted to the hospital with acute congestive heart failure -patient recently hospitalized 2 days ago at [facility] for 6 days for treatment of pneumonia and COPD -she did receive IV hydration during her stay -her proBNP was 1000 when admitted, today proBNP is elevated at 3700 -patient with bilateral pedal edema -chest x-ray unchanged -CT angio negative for pulmonary embolus No evidence of pulmonary embolism. No aortic dissection identified. enlarged pulmonary arteries suggest pulmonary artery hypertension, marked cardiomegaly, CAD, small right pleural effusion, airway thickening suggestive of nonspecific bronchitis and/or reactive airways disease. -patient sees Dr. Vidal from [facility], will obtain recent echo from there. If recent echo not done will obtain echocardiogram here -40 mg Lasix given in the emergency department, will continue 40 mg twice daily 2. Chronic respiratory failure secondary to COPD -patient will continue on 40 mg of prednisone -she will continue on 3-4 L home O2 -pCO2 of 62 but pH 7.4 suggest compensated respiratory failure -will continue DuoNebs, and Pulmicort inhaler 3. Recent pneumonia -patient was to continue 10 days of cefdinir and doxycycline -will continue antibiotic per discharge summary -she is afebrile, with a normal white count -COVID negative in the emergency department, will obtain respiratory panel and procalcitonin 4. Chronic atrial fibrillation -patient is anticoagulated on Coumadin, INR 1.4 -will continue Coumadin at 5 mg for day checking protime daily -will continue amiodarone at 100 mg daily 5. History of aortic valve replaced -continue Coumadin as above 6. Depression continue Cymbalta 7. DVT prophylaxis -patient on Coumadin although subtherapeutic, will continue Patient is a full code will note that her record accordingly Patient reports her daughter Maurizio surrogate decision maker Patient is admitted as an inpatient anticipate she will require greater than 48 hours hospitalization
[2020-08-08] MEDS: HYDROCODONE/ACET 10/325 TABLET 1 TAB PO (19:22)
[2020-08-08] MEDS: ALBUTEROL/IPRATROPIUM 3 ML AMPUL INH ×2 (20:00→22:01)
[2020-08-08] MEDS: BUDESONIDE 0.5 MG/2 ML NEB INH (20:10)
[2020-08-08] MEDS: NICOTINE 21 MG PATCH TOP (20:55)
[2020-08-08] MEDS: MAGNESIUM OXIDE 400 MG TABLET PO (20:56)
[2020-08-08] MEDS: ZOLPIDEM 5 MG TABLET 10 MG PO (20:56)
[2020-08-08] MEDS: DOXYCYCLINE HYCLATE 100 MG TABLET PO (20:56)
[2020-08-08] MEDS: PRAVASTATIN 20 MG TABLET 80 MG PO (20:57)
[2020-08-08] MEDS: METOPROLOL ER 50 MG TABLET PO (20:57)
[2020-08-08] MEDS: CEFDINIR 300 MG CAPSULE PO (20:57)
[2020-08-08] MEDS: GABAPENTIN 300 MG CAPSULE PO (20:57)
[2020-08-08 20:59] LABS: Procalcitonin < 0.05 ng/mL (<0.5)
--- NOTE | 2020-08-08 23:27 | PC.NURSE ---
A&OX4. was on 4L 98%, now 3L 96% cont pulse ox. sob w/exertion. pt voiding without difficulty. placed for bhagat per orders. bed alarm on. scds. call light in reach.
[2020-08-09] VITALS (29 sets, daily range): BP systolic 84–120; BP diastolic 50–59; PULSE 65–71; RESP 10–30; TEMP 31.4–37.1; O2SAT 90–99
[2020-08-09] MEDS: FUROSEMIDE 40 MG/4 ML VIAL IV ×2 (00:55→20:15)
[2020-08-09 05:30] LABS: INR 1.2 (0.9-1.3); Prothrombin Time 14.1 SECONDS (10.1-12.7)
[2020-08-09 05:35] LABS: Basophils Absolute Auto 0 /uL (0-100); Basophils Percent Auto 0.5 % (0-2); Eosinophils Absolute Auto 0 /uL (0-450); Eosinophils Percent Auto 0.3 % (2-4); Hematocrit 31.4 % (36-46); Lymphocytes Absolute Auto 600 /uL (1100-4500); Lymphocytes Percent Auto 18.7 % (25-40); Mean Corpuscular HGB Conc 31.8 % (30-36); Mean Corpuscular Hemoglobin 28.1 PG (26-34); Mean Corpuscular Volume 88.2 fL (80-100); Monocytes Absolute Auto 600 /uL (0-900); Monocytes Percent Auto 16.8 % (3-14); Neutrophils Absolute Auto 2100 /uL (1500-7000); Neutrophils Percent Auto 63.7 % (50-75); Platelet Count 86 X10^3/uL (150-400); Red Blood Cell Count 3.57 X10^6/uL (4.0-5.2); Red Cell Distribution Width 17.9 % (11.6-14.8); White Blood Cell Count 3.3 X10^3/uL (4.5-11.0)
[2020-08-09 05:36] LABS: BUN Creatinine Ratio 28.6 (6-22); Blood Urea Nitrogen 12 mg/dL (7-17); Calcium 8.6 mg/dL (8.4-10.2); Chloride 87 mmol/L (98-107); Estimated Glomerular Filt Rate > 60.0 mL/min (>60); Glucose 127 mg/dL (80-110); HEMOLYSIS < 15 (0-50); Potassium 3.6 mmol/L (3.4-5.1); Sodium 138 mmol/L (137-145)
[2020-08-09 05:37] LABS: Add Manual Diff / Slide Review SLIDE REVIEW
[2020-08-09 05:47] LABS: Carbon Dioxide 54 mmol/L (22-32)
[2020-08-09] MEDS: PANTOPRAZOLE 40 MG TABLET PO (06:37)
[2020-08-09 07:07] LABS: pH ABG 7.38 (7.35-7.45)
[2020-08-09 07:08] LABS: Fractionated Inspired Oxygen 32; HCO3 ABG 48 mmol/L (22-26); Oxygen Saturation ABG 93 % (95-100); PCO2 ABG 80.1 mmHg (35-45); PO2 ABG 74 mmHg (80-100); TCO2 ABG > 50 mmol/L (21-31)
--- NOTE | 2020-08-09 07:24 | DI.ECHO.S_ITS ---
[place] +---------+ Hospital +---------+ : : [address] : : : : [id number] : : : : Phone: [phone] Echocardiogram Report + + :Name: PADMA BRYANT Study Date: 08/09/2020 Height: 65 in : :[facility] Weight: 124 lb: : Gender: Female BSA: 1.6 m2 : :: 1960 Age: 60 yrs BP: 91/56 mmHg: :Reason For Study: CONGESTIVE HEART FIALURE : :Ordering Physician: COREEN, : :ASCENCION Performed By: Ernestine Cantrell : :Referring: ASCENCION ANGELA : + + Interpretation Summary The left ventricle is moderately dilated. Left ventricular systolic function is mildly reduced. Left ventricular ejection fraction is estimated to be 45 +/- 5%. This is unchanged compared to the previous study. 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 There is hypokinesis to akinesis part of the apex and basal to mid inferior and part of inferolateral wall. There is apical wall motion abnormality due to RV pacing as well. The right ventricle is borderline dilated. There is a pacemaker lead in the right ventricle. Right ventricular systolic function is mildly reduced. Right ventricular systolic pressure is estimated to be 32 mmHg plus the clinically estimated CVP which cannot be estimated on this exam. The left atrium is severely dilated. The right atrium is moderately dilated. There is mild to moderate mitral annular calcification. There is moderate to severe mitral regurgitation. Compared to the prior echo study, there has been no change in the severity of mitral regurgitation. There is a mechanical aortic valve. The mean gradient is 41 mmHg which has steadily increased over the past 3 studies. Previous gradients have been 31 mmHg (04/05/2020) and 24 mmHg (12/30/2019). The aortic root is not well visualized but is probably normal size. Procedure: A two-dimensional transthoracic echocardiogram with color flow and Doppler was performed in limited views only. The study quality was technically adequate. Comparison is made with the echocardiogram of 04/05/2020, 12/30/2019. The patient has a paced rhythm. The heart rate ranged between 69-74 bpm during the study. Left Ventricle: The left ventricle is moderately dilated. The estimated left ventricular end diastolic volume is 159 ml. Proximal septal thickening is noted. Left ventricular systolic function is mildly reduced. Left ventricular ejection fraction is estimated to be 45 +/- 5%. This is unchanged compared to the previous study. 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 There is hypokinesis to akinesis part of the apex and basal to mid inferior and part of inferolateral wall. There is apical wall motion abnormality due to RV pacing as well. Diastolic function could not be accurately assessed due to paced rhythm. Right Ventricle: The right ventricle is borderline dilated. There is a pacemaker lead in the right ventricle. Right ventricular systolic function is mildly reduced. Atria: The left atrium is severely dilated. The right atrium is moderately dilated. There is a catheter/pacemaker lead seen in the right atrium. There is no Doppler evidence for an interatrial shunt. Mitral Valve: The mitral valve leaflets are moderately calcified. There is mild to moderate mitral annular calcification. The mitral valve mean gradient is 4.2 mmHg. There is moderate to severe mitral regurgitation. Compared to the prior echo study, there has been no change in the severity of mitral regurgitation. Aortic Valve: There is a mechanical aortic valve. The mean gradient is 41 mmHg which has steadily increased over the past 3 studies. Previous gradients have been 31 mmHg (04/05/2020) and 24 mmHg (12/30/2019). There is trace aortic regurgitation. Tricuspid Valve: The tricuspid valve is not well visualized, but is grossly normal. Right ventricular systolic pressure is estimated to be 32 mmHg plus the clinically estimated CVP which cannot be estimated on this exam. There is mild tricuspid regurgitation. Pulmonic Valve: The pulmonic valve leaflets are thin and pliable; valve motion is normal. There is trace pulmonic regurgitation. Great Vessels: The aortic root is not well visualized but is probably normal size. The dimensions of the ascending aorta are normal. The IVC has a measurement of 2.0 mm. Pericardium/ Pleura There is no pericardial effusion. There is no pleural effusion. MMode/2D Measurements & Calculations LVIDd: 5.6 cm LVOT diam: 1.8 cm LVIDs: 3.9 cm asc Aorta Diam: 2.8 cm FS: 29.5 % EPSS: 1.3 cm IVSd: 1.4 cm LVPWd: 1.4 cm LV henriquez. diameter/BSA (cm/m^2): 3.5 LV sys. diameter/BSA (cm/m^2): 2.4 LA A2 area: 28.7 cm2 RA long axis: 5.9 cm LA A4 area: 32.9 cm2 RA area: 22.2 cm2 LA length (vol): 6.5 cm RA vol: 71.5 ml LA vol: 123.4 ml RA : 44.3 ml/m2 LA vol index: 76.4 ml/m2 IVC diam: 2.0 cm RVD1 (basal): 4.1 cm TAPSE: 1.5 cm Doppler Measurements & Calculations Ao V2 max: 444.3 cm/sec LVOT Max Elver: 88.6 cm/sec Ao V2 mean: 293.0 cm/sec LV V1 max P.1 mmHg Ao max P.1 mmHg LV V1 VTI: 18.6 cm Ao mean P.0 mmHg BURAK(I,D): 0.62 cm2 Ao V2 VTI: 78.4 cm BURAK(V,D): 0.52 cm2 sev ratio: 0.24 BURAK indexed to BSA (cm^2/m^2): 0.38 Med Peak E' Elver: 5.4 cm/sec TR max elver: 284.0 cm/sec Lat Peak E' Elver: 5.9 cm/sec TR max P.3 mmHg MVA(VTI): 1.1 cm2 PA V2 max: 115.5 cm/sec MR ERO: 0.34 cm2 PA V2 mean: 72.0 cm/sec PA mean P.4 mmHg PA pr(Accel): 31.0 mmHg MV V2 mean: 95.4 cm/sec MR PISA: 4.7 cm2 MV mean P.2 mmHg MR flow rate: 173.9 cm3/sec MV V2 VTI: 43.5 cm MR PISA radius: 0.87 cm SV(LVOT): 48.5 ml Reading Physician:05:08 PM
--- NOTE | 2020-08-09 07:37 | PC.NURSE ---
Day shift: Pt moved from room 218 to room 231 per MD. This principal technical writer is no longer the RN. Report given to ENGINE LATHE SET UP OPERATOR by NOC RN who cared for the Pt overnight.
[2020-08-09 07:39] LABS: Platelet Estimate Decreased on smear
[2020-08-09 07:40] LABS: Anisocytosis 1+; Basophilic Stippling 1+; Polychromasia 1+
[2020-08-09] MEDS: ALBUTEROL/IPRATROPIUM 3 ML AMPUL INH ×5 (07:40→22:08)
[2020-08-09] MEDS: BUDESONIDE 0.5 MG/2 ML NEB INH ×2 (07:41→19:52)
[2020-08-09 09:12] LABS: Adenovirus Not Detected (Not Detect); Bordetella pertussis Not Detected (Not Detect); Chlamydophila pneumoniae Not Detected (Not Detect); Coronavirus 229E Not Detected (Not Detect); Coronavirus HKU1 Not Detected (Not Detect); Coronavirus NL 63 Not Detected (Not Detect); Coronavirus OC43 Not Detected (Not Detect); Human Metapneumovirus Not Detected (Not Detect); Human Rhinovirus/Enterovirus Not Detected (Not Detect); Influenza A Not Detected (Not Detect); Influenza B Not Detected (Not Detect); Mycoplasma pneumoniae Not Detected (Not Detect); Parainfluenza Virus 1 Not Detected (Not Detect); Parainfluenza Virus 2 Not Detected (Not Detect); Parainfluenza Virus 3 Not Detected (Not Detect); Parainfluenza Virus 4 Not Detected (Not Detect); Respiratory Syncytial Virus Not Detected (Not Detect); SARS- CoV-2 Not Detected (Not Detecte)
[2020-08-09] MEDS: FUROSEMIDE 20 MG/2 ML VIAL 40 MG IV (09:14)
[2020-08-09] MEDS: NALOXONE 0.4 MG/ML VIAL 0.2 MG IV (09:14)
[2020-08-09 10:04] LABS: pH ABG 7.48 (7.35-7.45)
--- NOTE | 2020-08-09 10:04 | PC.NURSE ---
Addendum entered by Sakshi Thompson R.N. 08/09/20 14:54: Pt off bipap at this time, on 3L NC. Dr. Aguirre notified. Ok to leave bipap off at this time, needs to be on at night. Addendum entered by Sakshi Thompson R.N. 08/09/20 14:01: At about 1140 pt opening eyes spontaneously and talking, alert and able to carry a conversation. Requesting break from bipap, RT in room and pt switched to 3L NC for lunch. Up to chair with PT, SpO2 92-93% at rest. Per PT, pt did desaturate to 82% during transfer. Pt was then able to take morning medications without issue. Assisted back to bed for echo at 1315 and placed back on bipap (/, FIO2 35%). Pt resting and maintaining saturations of 96-98%. Original Note: Day Shift Note Received pt to room 231 from 218 at 0735. Report received from Bel CHATTERJEE. Pt sedated and on 3L NC, SpO2 93%. Not arousable to voice at this time but was to sternal rub and with MANAGER CONTRACT swab for ordered respiratory panel. Placed on bipap by RT per MD orders, /, rate 16 and FiO2 32%. SpO2 94-94%. Lung sounds decreased bilaterally. RR in the low 20s. Narcan 0.2 mg given with little effect. Lasix administered per emar. Repeat ABG drawn by RT and given to MD. Pt is now arousable to voice but unable to maintain a conversation, very quickly falls back asleep. Attempted to sit pt up to take AM pills, pt exhibited difficulty keeping head up and was unable to stay awake long enough to take sip of water. Deemed unsafe for oral medication administration and Dr. Aguirre updated. Bed alarm on and call light within reach.
[2020-08-09 10:05] LABS: Fractionated Inspired Oxygen 32; HCO3 ABG 49 mmol/L (22-26); Oxygen Saturation ABG 89 % (95-100); PCO2 ABG 65.9 mmHg (35-45); PO2 ABG 56 mmHg (80-100); TCO2 ABG > 50 mmol/L (21-31)
--- NOTE | 2020-08-09 11:29 | OT.IPNOTE ---
Addendum entered and electronically signed by Anastasiia Gonzalez OT 08/09/20 13:11: Pt not arousable versus medically appropriate. Original Note: Per nursing pt not medically appropriate for OT eval today ,to check on pt tomorrow if appropriate for Ot eval.
--- NOTE | 2020-08-09 12:00 | PT.IIE ---
Surgical History (Last Reviewed 08/08/20 @ 18:23 by Yecenia Gold MD) H/O aortic valve replacement Medical History (Last Updated 08/08/20 @ 18:23 by Yecenia Gold MD) Atrial fibrillation CHF (congestive heart failure) COPD (chronic obstructive pulmonary disease) Pacemaker Pneumonia Physical Therapy Inpatient Evaluation/Re-Eval M1 PT/OT-IP Prior Functional Status Start: 08/09/20 12:43 Freq: NEEDED Status: Active Protocol: Document 08/09/20 12:00 AB (Rec: 08/09/20 12:59 AB [id number]) Medical Review Prior Functional Status Medical History Reviewed Yes Communication able to make needs known Mobility and Gait pt stated that she is modified independent with all mobilities and ambulation without AD Social History Household Members caregiver Living Arrangements Apartment/Condo Number of Floors (Floors) One Floor Number of Stairs To Enter/Railing? 3rd floor apartment with elevator to get in Home Environment Standard Height Toilet,Walk in Shower,Tub/Shower,Built-In Shower Seat,Elevator Home Equipment Four Wheel Walker,Quad Cane, Grab Bars In Shower Additional Social History Comment pt stated that she has a live- in caregiver that can assist her has an adjustable bed M2 PT-IP Current Condition Start: 08/09/20 12:43 Freq: NEEDED Status: Active Protocol: Document 08/09/20 12:00 AB (Rec: 08/09/20 12:59 AB [email or web address]) Physical Therapy Current Condition Current Condition Evaluation Date 08/09/20 Treatment Diagnosis COPD; CHF; generalized weakness Onset Date 08/08/20 Precautions Other Precautions O2 sat M3 PT-IP Subjective Start: 08/09/20 12:43 Freq: NEEDED Status: Active Protocol: Document 08/09/20 12:00 AB (Rec: 08/09/20 12:59 AB [email or web address]) Subjective Physical Therapy Visit Type Type Initial Evaluation Visit Start Time 12:00 Visit Stop Time 12:39 Total Visit Minutes 39 Number of WHEAT CLEANER Visits 0 Physical Therapy Visit Comments Patient Comments pt is agreeable to do PT Therapy Pain Assessment Pain When Pain Assessed At Rest Pain Present Pain Present Pain Reported Location Lower Back Intensity 7 Scale Used Numeric (0 - 10) Description Chronic Pain Management Techniques Distraction,Modification of Treatment M4 PT-IP Mobility and Gait Start: 08/09/20 12:43 Freq: NEEDED Status: Active Protocol: Document 08/09/20 12:00 AB (Rec: 08/09/20 12:59 AB [id number]) PT-Bed Mobility Assessment Supine to Sit Supine to Sit Standby Assistance Sit to Supine Sit to Supine Standby Assistance PT-Transfer Assessment Sit to and From Stand Sit to and from Stand Contact Guard Assistance Equipment Transfer Assistive Device Gait Belt,Front Wheeled Walker Orthotic/Prosthetic Devices or Brace: No Transfers Transfer Destination Chair Transfer Technique ambulated using FWW Transfer Ability Level of Assist Contact Guard Assistance, Minimal Assistance,1 Person Assistance,Use of Upper Extremities Comments Mobility Comments BP in supine in bed with HOB elevated: 83/51. no c/o dizziness. O2 sat at rest: 88 to 90% .completed supine to sit SBA. BP in sittin/53 . continues to not c/o dizziness/ nausea. completed sit to stand cGA and ambulated towards the chair CGA to min A and cues. pt sat on chair. refused further ambulation. positioned pt on chair. BP: 90/56. call light and table placed within reach. O2 sat decreased to 83%. after ambulation. O2 sat after restin% with O2 on. Gait Assessment Gait Gait Assistance Required: Contact Guard Assist,Minimum Assistance Distance (Feet) 15 Able to Maintain Weight Bearing Status Yes During Gait Assistive Devices Assistive Device Gait Belt,Front Wheeled Walker Orthotic/Prosthetic Devices or Brace: No Gait Deviations General Gait Pattern Decreased Stride Length, Decreased Feet Clearance Factors Limiting Gait Function Factors Limiting Gait Function Decreased Strength,Pain,Poor Balance,Respiratory Distress PT-Balance Assessment Sitting Balance and Reactions Static Sitting Balance Ability Good Dynamic Sitting Balance Ability Good Standing Balance and Reactions Static Standing Balance Ability Fair Dynamic Standing Balance Ability Fair Device Used FWW M5 PT-IP Objective Assessments Start: 08/09/20 12:43 Freq: NEEDED Status: Active Protocol: Document 08/09/20 12:00 AB (Rec: 08/09/20 12:59 AB [id number]) Orientation Orientation/Cognition Level of Alertness Alert Orientation Name,Place,Situation Safety Awareness Decreased Safety Awareness Gross Range of Motion Lower Extremity ROM Assessment Within Functional Limits Strength Lower Extremity Strength Assessment Bilaterally Impaired Hip 3+/5 Knee 3+/5 Coordination Assessment Gross Coordination Gross Coordination WNL Sensation Assessment Sensation Gross Sensation WNL Muscle Tone Muscle Tone WNL Yes M6 PT-IP Treatment Start: 08/09/20 12:43 Freq: NEEDED Status: Active Protocol: Document 08/09/20 12:00 AB (Rec: 08/09/20 12:59 AB [id number]) Physical Therapy Treatment Education Education Provided Safety M7 PT-IP Assessment and Plan Start: 08/09/20 12:43 Freq: NEEDED Status: Active Protocol: Document 08/09/20 12:00 AB (Rec: 08/09/20 12:59 AB [id number]) PT Summary Assessment and Plan Potential Rehabilitation Potential Good Status of Condition at Evaluation Evolving Summary Impairments Pain,ROM,Strength,Balance, Coordination,Sensation,Tone, Cognition,Bed Mobility, Transfers,Gait,Activity Tolerance Assessment Summary pt requiring CGA to min A and cues with mobility and unable to tolerate much activity with decrease in O2 sat after ambulation to 93% with O2 on. d/c plan depending on progress and if caregiver will be able to assist pt safely. pt needs to be more independent prior to d/c home. will has to assess progress. Goals Bed Mobility Goal Independent Transfer Goal Independent,Front Wheeled Walker,Four Wheeled Walker Gait Goal Independent,Front Wheel Walker ,Four Wheel Walker Gait Distance 150 Other Goals ambulation without AD SBA 150 ft Days to Meet Goals 10 Frequency of Treatment Frequency Of Treatment Once a Day Treatment Plan Physical Therapy Treatment Plan Bed Mobility Training,Transfer Training,Gait Training, Therapeutic Exercise,Balance Retraining,Discharge Planning, Neuromuscular Re-ed, Coordination Retraining Other Recommendations and Next Treatment ambulation Focus Recommendations To Nursing Amount of Assist Needed 1 Person Assist Discharge Recommendations PT Discharge Recommendations Home with Assistance,Home with 24/7 Assist,Home Health,SNF Rehab Other Discharge Recommendations depending on progress: home with 24/7 assist/HHPT vs SNF Transportation Needs at Discharge Private Vehicle,Wheelchair/ Cabulance
--- NOTE | 2020-08-09 12:47 | P.PN_ITS ---
Subjective Subjective Date Patient Seen: 08/09/20 Interval history: Francia Gill is a 60-year-old female with a past medical history significant for congenital heart disease, mechanical aortic valve, history of chronic respiratory failure secondary to COPD on 3 L of home oxygen, chronic atrial fibrillation with pacemaker who was discharged from [facility] 2 days ago after treatment of pneumonia and COPD who presented to ED with progressive worsening shortness of breath and lower extremity edema. The patient is resting in bed comfortably. She became significantly hypercarbic and somnolent overnight requiring BiPAP due to Ambien administration. She slowly became more alert and conversant with improvement in hypercarbia. Discussed her worsening lung disease and continued smoking and the likelihood that this will continue to progress rapidly if she does not use abstain from smoking. She endorses fatigue and has noticed more daytime sleepiness over the last several weeks. She denies headache, shortness of breath, chest pain, abdominal pain, nausea, vomiting, fever, chills, dysuria, diarrhea or constipation. She is voiding and eliminating without difficulty. She is up ambulating with assistance. Exam Vital Signs (past 8 hours): - 08/09/20 08:00 08/09/20 09:00 08/09/20 09:31 Temperature 97.9 F Pulse Rate 70 69 Respiratory Rate 30 H 22 Blood Pressure 118/56 L 117/58 L Pulse Oximetry 95 93 97 08/09/20 10:00 08/09/20 11:00 08/09/20 11:48 Temperature 98.1 F 98.1 F Pulse Rate 65 70 68 Respiratory Rate 23 27 H 18 Blood Pressure 119/56 L 120/58 L Pulse Oximetry 94 93 96 Fraction of Inspired Oxygen 35 Oxygen Delivery Method Nasal Cannula Oxygen Flow Rate 3 Narrative Exam Narrative: General: Older thin frail-appearing female lying in bed and in no acute distress, appears older than stated age, mildly somnolent but arousable, appropriately interactive. HEENT: Normocephalic, atraumatic. External ears without defect. Pupils equal, round, and reactive to light. Anicteric sclerae, moist conjunctivae, and no lid lag. Oropharynx free of erythema and cobble stoning with moist mucosa. Edentulous. Neck: Supple with full range of motion. No jugular venous distension. No lymphadenopathy or thyromegaly. Cardiovascular: Regular rate and rhythm without murmurs, rubs, or gallops appreciated. Pulmonary: Diminished throughout but clear to auscultation bilaterally with fine crackles at bases. No wheezes or rhonchi. Normal respiratory effort with no use of accessory muscles. Abdomen: Soft, bowel sounds present, nontender, nondistended. No hepa tosplenomegaly or masses appreciated. Extremities: No clubbing, cyanosis, or edema. Skin: Normal temperature, turgor, and texture; no rash, ulcers, or subcutaneous nodules appreciated. Neurological: Cranial nerves grossly intact. Psychiatric: Somnolent but arousable. Normal mood and affect. Alert and oriented to person, place, and time. Poor insight. Objective Labs Result Diagrams: 08/10/20 04:45 08/10/20 04:45 Labs: Laboratory Results - last 24 hr 08/08/20 08/09/20 08/09/20 20:00 05:00 05:00 WBC 3.3 L RBC 3.57 L Hgb 10.0 L Hct 31.4 L MCV 88.2 MCH 28.1 MCHC 31.8 RDW 17.9 H Plt Count 86 L Neut % (Auto) 63.7 Lymph % (Auto) 18.7 L Taylor % (Auto) 16.8 H Eos % (Auto) 0.3 L Baso % (Auto) 0.5 Neut # (Auto) 2100 Lymph # (Auto) 600 L Taylor # (Auto) 600 Eos # (Auto) 0 Baso # (Auto) 0 Platelet Estimate Decreased on smear Plt Morphology Comment RBC Morphology See below Polychromasia 1+ H Basophilic Stippling 1+ H Anisocytosis 1+ H PT INR ABG pH ABG pCO2 ABG pO2 ABG HCO3 ABG Total CO2 ABG O2 Saturation ABG Base Excess FiO2 Sodium 138 Potassium 3.6 Chloride 87 L Carbon Dioxide 54 H* BUN 12 Creatinine 0.42 L Estimated GFR > 60.0 BUN/Creatinine Ratio 28.6 H Glucose 127 H Calcium 8.6 Procalcitonin < 0.05 Nasal Screen MRSA (PCR) Chlamy pneumoniae PCR Adenovirus (PCR) B.parapertussis DNA PCR Coronavirus OC43 (PCR) Coronavirus HKU1 (PCR) Coronavirus 229E (PCR) COVID-19 PCR Coronavirus NL63 (PCR) Human Metapneumovir PCR Influenza Type A (PCR) Influenza Type B (PCR) M. pneumoniae (PCR) Parainfluenza 1 (PCR) Parainfluenza 2 (PCR) Parainfluenza 3 (PCR) Parainfluenza 4 (PCR) RSV (PCR) Entero/Rhino (PCR) 08/09/20 08/09/20 08/09/20 05:00 06:39 07:35 WBC RBC Hgb Hct MCV MCH MCHC RDW Plt Count Neut % (Auto) Lymph % (Auto) Taylor % (Auto) Eos % (Auto) Baso % (Auto) Neut # (Auto) Lymph # (Auto) Taylor # (Auto) Eos # (Auto) Baso # (Auto) Platelet Estimate Plt Morphology Comment RBC Morphology Polychromasia Basophilic Stippling Anisocytosis PT 14.1 H INR 1.2 ABG pH 7.38 ABG pCO2 80.1 H* ABG pO2 74 L ABG HCO3 48 H ABG Total CO2 > 50 H ABG O2 Saturation 93 L ABG Base Excess 23.0 H FiO2 32 Sodium Potassium Chloride Carbon Dioxide BUN Creatinine Estimated GFR BUN/Creatinine Ratio Glucose Calcium Procalcitonin Nasal Screen MRSA (PCR) Chlamy pneumoniae PCR Not detected Adenovirus (PCR) Not detected B.parapertussis DNA PCR Not detected Coronavirus OC43 (PCR) Not detected Coronavirus HKU1 (PCR) Not detected Coronavirus 229E (PCR) Not detected COVID-19 PCR Not detected Coronavirus NL63 (PCR) Not detected Human Metapneumovir PCR Not detected Influenza Type A (PCR) Not detected Influenza Type B (PCR) Not detected M. pneumoniae (PCR) Not detected Parainfluenza 1 (PCR) Not detected Parainfluenza 2 (PCR) Not detected Parainfluenza 3 (PCR) Not detected Parainfluenza 4 (PCR) Not detected RSV (PCR) Not detected Entero/Rhino (PCR) Not detected 08/09/20 08/09/20 07:35 09:20 WBC RBC Hgb Hct MCV MCH MCHC RDW Plt Count Neut % (Auto) Lymph % (Auto) Taylor % (Auto) Eos % (Auto) Baso % (Auto) Neut # (Auto) Lymph # (Auto) Taylor # (Auto) Eos # (Auto) Baso # (Auto) Platelet Estimate Plt Morphology Comment RBC Morphology Polychromasia Basophilic Stippling Anisocytosis PT INR ABG pH 7.48 H ABG pCO2 65.9 H* ABG pO2 56 L ABG HCO3 49 H ABG Total CO2 > 50 H ABG O2 Saturation 89 L ABG Base Excess 25.0 H FiO2 32 Sodium Potassium Chloride Carbon Dioxide BUN Creatinine Estimated GFR BUN/Creatinine Ratio Glucose Calcium Procalcitonin Nasal Screen MRSA (PCR) Negative for mrsa Chlamy pneumoniae PCR Adenovirus (PCR) B.parapertussis DNA PCR Coronavirus OC43 (PCR) Coronavirus HKU1 (PCR) Coronavirus 229E (PCR) COVID-19 PCR Coronavirus NL63 (PCR) Human Metapneumovir PCR Influenza Type A (PCR) Influenza Type B (PCR) M. pneumoniae (PCR) Parainfluenza 1 (PCR) Parainfluenza 2 (PCR) Parainfluenza 3 (PCR) Parainfluenza 4 (PCR) RSV (PCR) Entero/Rhino (PCR) [facility] Medical History (Updated 08/08/20 @ 18:23 by Yecenia Gold MD) Atrial fibrillation CHF (congestive heart failure) COPD (chronic obstructive pulmonary disease) Pacemaker Pneumonia Surgical History H/O aortic valve replacement Family History (Updated 08/08/20 @ 18:24 by Yecenia Gold MD) Mother Pulmonary fibrosis Social History household members: caregiver Smoking Status: Current every day smoker Assessment & Plan Assessment & Plan narrative: Francia Gill is a 60-year-old female with a past medical history significant for congenital heart disease, mechanical aortic valve, history of chronic respiratory failure secondary to COPD on 3 L of home oxygen, chronic atrial fibrillation with pacemaker who was discharged from [facility] 2 days ago after treatment of pneumonia and COPD who presented to ED with progressive worsening shortness of breath and lower extremity edema. 1. Acute systolic congestive heart failure exacerbation, present on admission. Improving. -Patient recently hospitalized at [facility] x 6 days for treatment of pneumonia and COPD and which patient received IV fluid hydration throughout hosp italization. Patient presented with progressive worsening shortness of breath and lower extremity edema. Patient is followed by Dr. Vidal of cardiology at [facility]. -ProBNP elevated at 3790 which was previously over 1000 at [facility]. -Chest x-ray demonstrated right medial lung consolidation unchanged. -CTA chest negative for pulmonary embolus or aortic dissection. Noted, enlarged pulmonary arteries suggest pulmonary artery hypertension, marked cardiomegaly, CAD, small right pleural effusion, airway thickening suggestive of nonspecific bronchitis and/or reactive airways disease. -Ordered echocardiogram, pending. -Continue strict I&Os and daily weights. Net - 1.3 L. -Received furosemide 40 mg IV x1 in ED. Continue furosemide 40 mg IV twice daily and will switch to PO once adequately diuresed. 2. Acute on chronic hypoxemic and hypercarbic respiratory failure, secondary to COPD exacerbation, present on admission. Active. -ABG demonstrated compensated respiratory acidosis with pCO2 62 on admission. Patient received Ambien with acute worsening hypercarbic respiratory failure. Patient has been instructed in the past to never use Ambien due to worsening respiratory failure. -Continue respiratory therapy evaluation and treatment. Continue DuoNebs and Pulmicort inhaler. Continue supplemental oxygen as necessary to maintain oxygen saturations 88-92%. Patient has home oxygen requirement of 3-4 L baseline. Do not want her over oxygen 8 patient as this will precipitate hypercarbia. Patient previously had CPAP for JEMIMA but does not use her machine frequently as she r emoves the mask during sleep. Plan to qualify the patient for trilogy through her oxygen company [employer] as patient requires noninvasive ventilator due to severity of COPD and chronic hypoxemic and hypercarbic respiratory failure as BiPAP is deemed insufficient. -Received methylprednisolone 125Mg IV x1 in ED. Continue prednisone 40 mg daily x4 days for 5 day glucocorticoid burst. 3. Recent right middle lobe pneumonia, present on admission. Resolving. -Chest x-ray demonstrated right medial lung consolidation unchanged. -Patient is afebrile with a normal white count. -COVID negative and respiratory PCR negative. -Continue previously prescribed course of cefdinir 300 mg twice daily and doxy cycline 100 mg twice daily for 10 days total of antibiotic treatment to be completed on 08/11/2020 (received 6 days of antibiotics at [facility]). 4. Chronic atrial fibrillation status post pacemaker, present on admission. Stable. -CTA chest negative for PE. -Venous Doppler ultrasound of bilateral lower extremities negative for DVT. -Continue home amiodarone 100 mg daily, metoprolol succinate 50 mg twice daily and warfarin 5 mg daily. INR subtherapeutic at 1.4. Continue to monitor INR daily. 5. Hyperlipidemia, chronic, present on admission. Stable. -Continue home pravastatin 80 mg daily at bedtime. 6. History of bioprosthetic aortic valve. -Continue home warfarin 5 mg daily as above. 7. Depression, chronic, present on admission. Stable. -Continue home duloxetine 60 mg daily. 8. Chronic pain back pain with opiate dependence, present on admission. Stable. -Continue home hydrocodone 10-325 mg every 6 hours as needed for pain. Plan to be cautious with narcotic administration with concurrent respiratory failure as this will precipitate risk of complication and/or . 9. Tobacco dependence, chronic, present on admission. Stable. -Patient reports she smokes 0.5 ppd day. -Continue Nicoderm patch 21 mg daily to avoid nicotine withdrawal. -Counseled patient extensively on smoking cessation. Code status: DNR/DNI as discussed with patient, her daughter Maurizio surrogate decision maker. VTE prophylaxis: Warfarin, SCDs Disposition: Patient will likely discharge home with home health once adequately diuresed.
[2020-08-09] MEDS: DOXYCYCLINE HYCLATE 100 MG TABLET PO ×2 (12:48→21:39)
[2020-08-09] MEDS: METOPROLOL ER 50 MG TABLET PO ×2 (12:48→20:17)
[2020-08-09] MEDS: CEFDINIR 300 MG CAPSULE PO ×2 (12:48→20:15)
[2020-08-09] MEDS: DULOXETINE 30 MG CAPSULE 60 MG PO (12:48)
[2020-08-09] MEDS: POTASSIUM CHLORIDE 20 MEQ TAB 40 MEQ PO (12:49)
[2020-08-09] MEDS: AMIODARONE 200 MG TABLET 100 MG PO (12:49)
[2020-08-09] MEDS: MAGNESIUM OXIDE 400 MG TABLET PO ×2 (12:49→20:15)
[2020-08-09] MEDS: predniSONE 20 MG TABLET 40 MG PO (12:49)
[2020-08-09] MEDS: ACETAMINOPHEN 325 MG TABLET 650 MG PO (12:50)
[2020-08-09 13:30] LABS: Magnesium 1.9 mg/dL (1.6-2.3)
--- NOTE | 2020-08-09 14:22 | CM.DANOTE ---
Addendum entered by Eleanor Richard LPN 08/09/20 14:59: Was able to talk now with pt. She is off of BIpap and on o2 nc. She confirms her vendor for her home o2 is [employer]. She states that she was actually in [facility] for several days and do go to sister Liza's home at d/c. She plans this again. She notes she is aware that Dr. Aguirre is considering a Trilogy for home and is concerned about managing such a large piece of equipment.. She has a POLST form at bedside and is reading it with intent to better understand her options for future care and make some decisions. P: home to Liza's house when stable for same. Madeleine may be picking her up at d/c as she is the primary city driver. Pt says she is not currently in school and so is available for supportive care to pt 11/03 but nothing that is medically related. Original Note: Discharge Planning/Care Management DCP: assessment: case received, EMR reviewed and attempted to meet with pt. She was in process of ECHO and is back now on Bipap so made a call to her POA daughter Xochitl Rogers for introduction of self and role and with intent to obtain some clarity on her living situation. Xochitl states that pt does live in an apartment in [place] but does not have an actual caregiver, see template below. She reports that pt typically goes to her sister's house in [place]: Bel Alexandra home: [phone] and cell: [phone]. Bel is retired, takes pt to her physician appointments and provides a place for pt to be where she can get some supportive assist when she is not able to reside independently. Xochitl: home: [phone] and cell: [phone] states that she still is working in the community and thus does not see her mother in person as part of COVID restrictions. She does also live in [place]. Xochitl also expressed family concerns that pt may be overusing her pain medication and has history of heavy addiction to Ambien and is warned by her physicians not to ever take this. She requests info be relayed to Dr. Aguirre/tracy and says that she is also going to make sure pt's PCP: Dr. Carbajal and page makeup system operator Dr. Vidal know about her concerns. P: at this time pt will likely d/c to sister Bel's home. Dr. Aguirre is updated. Says this may be as early as tomorrow and that she is considering a home Trilogy for pt. did try to check in again with pt but she is in bed, eyes closed and BIPAP in place. CM Discharge Assessment Start: 08/09/20 14:08 Freq: Status: Active Protocol: Document 08/09/20 14:09 ITV (Rec: 08/09/20 14:21 ITV [id number]) Discharge Planning Assessment Advance Directives? No History Provided By Family Member,Medical Record Has Patient been admitted in last 30 Yes: but was to [facility]? Comment Hospital. Unclear how long she was there but d/c was 2 days prior to this admission to Prior Living Arrangements Apartment/Condo Comment Pt shares her home with a college student, Kitty (? sp) who helps her get her groceries and other types of ancillary support. Independent with ADL's Yes Is patient alert and oriented? Yes Needs Assistance With Home Chores / Shopping Community [employer] used prior to Oxygen Therapy admission: Comment on home o2 at 3 L Continues to smoke and removes o2 and goes out on her balcony when she smokes. Review Status In Process
--- NOTE | 2020-08-09 14:45 | DI.US.S_ITS ---
PROCEDURE: US PERIPH VENOUS LOW EXTREM BI INDICATIONS: Swelling right LE, immobile TECHNIQUE: Real-time imaging, as well as color and pulse Doppler interrogation, were performed of the deep veins of both legs from the inguinal ligament to the popliteal fossa. COMPARISON: None. FINDINGS: Right: The common femoral, femoral and popliteal veins are normally compressible, and free of intraluminal thrombus. Color and pulse Doppler demonstrate normal phasic intravascular flow. There is normal augmentation response to distal compression maneuver. Left: The common femoral, femoral and popliteal veins are normally compressible, and free of intraluminal thrombus. Color and pulse Doppler demonstrate normal phasic intravascular flow. There is normal augmentation response to distal compression maneuver. IMPRESSION: No evidence of deep vein thrombosis involving either the right or left lower extremities. Dictated by: Bailey Meyer MD, PhD on 08/09/2020 at 16:21 Approved by: Bailey Meyer MD, PhD on 08/09/2020 at 16:22
[2020-08-09] MEDS: HYDROCODONE/ACET 5/325 TABLET 1 TAB PO ×2 (14:52→20:22)
[2020-08-09] MEDS: GABAPENTIN 300 MG CAPSULE PO ×2 (14:52→20:18)
--- NOTE | 2020-08-09 15:52 | RT ---
Patient currently on her baseline 3L oxygen, saturations remain greater than 92%. Encourage BIPAP use with rest settings are 10/5, R 16, 35%.
[2020-08-09] MEDS: WARFARIN 5 MG TABLET PO (17:21)
[2020-08-09] MEDS: PRAVASTATIN 20 MG TABLET 80 MG PO (20:15)
[2020-08-09] MEDS: SUCRALFATE 1 GM TABLET PO (20:18)
[2020-08-09] MEDS: NICOTINE 21 MG PATCH TOP (20:22)
[2020-08-09] MEDS: MELATONIN 3 MG TABLET 6 MG PO (21:57)
--- NOTE | 2020-08-09 22:03 | PC.NURSE ---
Evening shift note: A/O x4, currently on 3L NC sats 94% continuous pulse ox, pt to be on bipap with sleep, settings 10/5 35%, becomes SOB with exertion. Bean patent and draining clear, yellow urine. SCDs in place, bed alarm on for safety, call light within reach, will continue to monitor.
[2020-08-10] VITALS (20 sets, daily range): BP systolic 81–106; BP diastolic 50–64; PULSE 68–74; RESP 10–26; TEMP 36.4–36.9; O2SAT 92–100
--- NOTE | 2020-08-10 01:39 | PC.NURSE ---
Addendum entered by Brisa Blanc R.N. 08/10/20 05:36: R. Blanco GARCIA notified of Critical High CO2 at 48. VALVE GRINDER putting in order to DC Lasix. Pt awake, alert, and carrying on lucid conversation. Pt on 3L O2 sats 88-97%. Charge Nurse Katarzyna Tadeo RN Notified. Addendum entered by Brisa Blanc R.N. 08/10/20 04:29: 0400 Blanco GARCIA notified that patient remains on 3L O2 with sats greater than 93%. Patient remains awake. Original Note: 0000 Patient awake and states that she doesn't like BiPap. Explanations given regarding necessity of BiPap. RT in to assist with padding for the bridge of patients nose. Patient diaphortic and gown change with offer of sponge bath. Pt requests humidification be turned off for BiPap for now. RT turned humidification off and will recheck soon. 0150 RT notified that O2 sats 98-100% and patient is c/o stuffy nose. Explained to patient that humidification would assist her with dry nose. Pt agreeable to reactivating humidification.
[2020-08-10] MEDS: HYDROCODONE/ACET 10/325 TABLET 1 TAB PO ×2 (01:59→08:27)
[2020-08-10 05:11] LABS: Basophils Absolute Auto 0 /uL (0-100); Basophils Percent Auto 0.9 % (0-2); Eosinophils Absolute Auto 0 /uL (0-450); Eosinophils Percent Auto 0.5 % (2-4); Hematocrit 31.3 % (36-46); Hemoglobin 9.9 g/dL (12.0-16.0); Lymphocytes Absolute Auto 1000 /uL (1100-4500); Lymphocytes Percent Auto 21.8 % (25-40); Mean Corpuscular HGB Conc 31.7 % (30-36); Mean Corpuscular Hemoglobin 28.1 PG (26-34); Mean Corpuscular Volume 88.5 fL (80-100); Monocytes Absolute Auto 500 /uL (0-900); Neutrophils Absolute Auto 2900 /uL (1500-7000); Neutrophils Percent Auto 65.8 % (50-75); Platelet Count 101 X10^3/uL (150-400); Red Blood Cell Count 3.54 X10^6/uL (4.0-5.2); Red Cell Distribution Width 17.9 % (11.6-14.8); White Blood Cell Count 4.4 X10^3/uL (4.5-11.0)
[2020-08-10 05:15] LABS: Add Manual Diff / Slide Review SLIDE REVIEW
[2020-08-10 05:19] LABS: BUN Creatinine Ratio 40.5 (6-22); Blood Urea Nitrogen 17 mg/dL (7-17); Calcium 8.5 mg/dL (8.4-10.2); Chloride 86 mmol/L (98-107); Estimated Glomerular Filt Rate > 60.0 mL/min (>60); Glucose 111 mg/dL (80-110); HEMOLYSIS 16 (0-50); Magnesium 1.4 mg/dL (1.6-2.3); Potassium 3.6 mmol/L (3.4-5.1); Sodium 133 mmol/L (137-145)
[2020-08-10 05:30] LABS: Carbon Dioxide 48 mmol/L (22-32)
[2020-08-10] MEDS: MAGNESIUM SULFATE 2 GM/50 ML PIGGYBACK IV (06:00)
[2020-08-10] MEDS: PANTOPRAZOLE 40 MG TABLET PO (06:12)
[2020-08-10 06:54] LABS: Platelet Morphology Comment GIANT
[2020-08-10] MEDS: BUDESONIDE 0.5 MG/2 ML NEB INH (06:54)
[2020-08-10] MEDS: ALBUTEROL/IPRATROPIUM 3 ML AMPUL INH ×2 (06:54→11:27)
[2020-08-10] MEDS: CEFDINIR 300 MG CAPSULE PO (08:26)
[2020-08-10] MEDS: POTASSIUM CHLORIDE 20 MEQ TAB 40 MEQ PO (08:26)
[2020-08-10] MEDS: AMIODARONE 200 MG TABLET 100 MG PO (08:26)
[2020-08-10] MEDS: DOXYCYCLINE HYCLATE 100 MG TABLET PO (08:27)
[2020-08-10] MEDS: FERROUS SULFATE 325 MG TABLET PO (08:27)
[2020-08-10] MEDS: MAGNESIUM OXIDE 400 MG TABLET PO (08:27)
[2020-08-10] MEDS: GABAPENTIN 300 MG CAPSULE PO ×2 (08:27→13:50)
[2020-08-10] MEDS: DULOXETINE 30 MG CAPSULE 60 MG PO (08:27)
[2020-08-10] MEDS: METOPROLOL ER 50 MG TABLET PO (08:27)
[2020-08-10] MEDS: predniSONE 20 MG TABLET 40 MG PO (08:28)
[2020-08-10] MEDS: SUCRALFATE 1 GM TABLET PO ×2 (08:28→13:50)
[2020-08-10] MEDS: MULTIVITAMIN 1 TABLET 1 TAB PO (08:28)
[2020-08-10 09:31] LABS: INR 1.2 (0.9-1.3); Prothrombin Time 14.3 SECONDS (10.1-12.7)
--- NOTE | 2020-08-10 11:25 | PT.IPTN ---
Current Diagnoses Heart failure, unspecified (08/08/20) Physical Therapy Treatment Note M2 PT-IP Current Condition Start: 08/09/20 12:43 Freq: NEEDED Status: Active Protocol: Document 08/09/20 12:00 AB (Rec: 08/09/20 12:59 AB [id number]) Physical Therapy Current Condition Current Condition Evaluation Date 08/09/20 Treatment Diagnosis COPD; CHF; generalized weakness Onset Date 08/08/20 Precautions Other Precautions O2 sat M3 PT-IP Subjective Start: 08/09/20 12:43 Freq: NEEDED Status: Active Protocol: Document 08/10/20 11:04 SP (Rec: 08/10/20 13:56 SP [id number]) Subjective Physical Therapy Visit Type Type Treatment Note Visit Start Time 11:04 Visit Stop Time 11:25 Total Visit Minutes 21 Number of PATTERN DRUM MAKER Visits 1 Physical Therapy Visit Comments Patient Comments pt agreeable to working with therapy. Patient Goals Wanting to return home with her livestock trucker to assist her. Therapy Pain Assessment Pain Present Pain Present Denied Pain M4 PT-IP Mobility and Gait Start: 08/09/20 12:43 Freq: NEEDED Status: Active Protocol: Document 08/10/20 11:04 SP (Rec: 08/10/20 13:56 SP [id number]) PT-Bed Mobility Assessment Rolling Type of Rolling Roll to Right Level of Assist Independent Supine to Sit Supine to Sit Independent Sit to Supine Sit to Supine Independent Scooting Scooting to Edge of Bed Independent Scooting Up and Down in Bed Independent PT-Transfer Assessment Sit to and From Stand Sit to and from Stand Standby Assistance,Use of Upper Extremities Equipment Transfer Assistive Device Gait Belt,Front Wheeled Walker ,4 Wheeled Walker Orthotic/Prosthetic Devices or Brace: No Transfers Transfer Destination Bed,Chair,Toilet Transfer Technique ambulated using FWW and 4WW Transfer Ability Level of Assist Standby Assistance,Use of Upper Extremities Comments Mobility Comments Pt was in bathroom when arrived just pulled call light for [employer] QA LAB TECHNICIAN. Sit > stand SBA using FWW, ambulated to sink approx 10 ft with cuing and assist for O2 tubing mgt for safety while providing education on safety awareness of tubing, pt verbalized understanding. Cued patient for FWW positioning in front while at sink for safety, good standing balance at sink no UE assist while washing hands. Pt returned to sitting at EOB with cuing for reaching back prior to sitting for safety, assessed vitals sitting at EOB : 95/55 HR 71 SaO2 94% on 3L, maintained mid 90s throughout treatment. Sitting<> supine I , sit >stand using 4WW with good braking mgt post education on proper use for safety. Ambulated further 2 laps in room with occasional cuing for tubing mgt for safety and body staying within 4ww, good stability. Pt returned to chair with cuing for reaching back prior to sitting for safety graded descent. Pt was seated in chair with [employer] QA LAB TECHNICIAN and respiratory therapist in room when left, call light and all needs in reach, mentioned would like a chair alarm on before leaving with confirmation will get one . Pt is ok to return home when medically stable using FWW or 4WW has at home with caregiver to assist her. Pt stated will call her caregiver to let them know about her progress and might be able to return home with them to assist her recommending HHPT to work on strength and activity tolerance. Gait Assessment Gait Gait Assistance Required: Standby Assistance Distance (Feet) 60 Able to Maintain Weight Bearing Status Yes During Gait Assistive Devices Assistive Device Gait Belt,Front Wheeled Walker ,4 Wheeled Walker Orthotic/Prosthetic Devices or Brace: No Gait Deviations General Gait Pattern Decreased Stride Length, Decreased Feet Clearance Factors Limiting Gait Function Factors Limiting Gait Function Decreased Activity Tolerance, Decreased Strength,Poor Balance,Poor Safety Awareness, Respiratory Distress Comments Gait Comments See mobility comments for details. PT-Balance Assessment Sitting Balance and Reactions Static Sitting Balance Ability Good Dynamic Sitting Balance Ability Good Standing Balance and Reactions Static Standing Balance Ability Fair Dynamic Standing Balance Ability Fair Device Used FWW& 4WW M5 PT-IP Objective Assessments Start: 08/09/20 12:43 Freq: NEEDED Status: Active Protocol: Document 08/09/20 12:00 AB (Rec: 08/09/20 12:59 AB [id number]) Orientation Orientation/Cognition Level of Alertness Alert Orientation Name,Place,Situation Safety Awareness Decreased Safety Awareness Gross Range of Motion Lower Extremity ROM Assessment Within Functional Limits Strength Lower Extremity Strength Assessment Bilaterally Impaired Hip 3+/5 Knee 3+/5 Coordination Assessment Gross Coordination Gross Coordination WNL Sensation Assessment Sensation Gross Sensation WNL Muscle Tone Muscle Tone WNL Yes M6 PT-IP Treatment Start: 08/09/20 12:43 Freq: NEEDED Status: Active Protocol: Document 08/10/20 11:04 SP (Rec: 08/10/20 13:56 SP [id number]) Physical Therapy Treatment Education Education Provided Safety M7 PT-IP Assessment and Plan Start: 08/09/20 12:43 Freq: NEEDED Status: Active Protocol: Document 08/10/20 11:04 SP (Rec: 08/10/20 13:56 SP [id number]) PT Summary Assessment and Plan Potential Rehabilitation Potential Good Status of Condition at Evaluation Evolving Summary Impairments Pain,ROM,Strength,Balance, Coordination,Sensation,Tone, Cognition,Bed Mobility, Transfers,Gait,Activity Tolerance Progress Towards Goals Progressing Toward Goals,Slow Progress due to Activity Tolerance Assessment Summary Pt is I during bed mobilty, sBA during transfers and gait using FWW and 4WW. Pt requires Supplimental O2 and cuing for safety O2 tubing mgt to decrease risk for falls and safety hand placement, recommending 24/ caregiver to assist her at home. Pt continues to have a decreased BP but nonsymptomatic. Goals Bed Mobility Goal Independent Transfer Goal Independent,Front Wheeled Walker,Four Wheeled Walker Gait Goal Independent,Front Wheel Walker ,Four Wheel Walker Gait Distance 150 Other Goals ambulation without AD SBA 150 ft Days to Meet Goals 10 Frequency of Treatment Frequency Of Treatment Once a Day Treatment Plan Physical Therapy Treatment Plan Bed Mobility Training,Transfer Training,Gait Training, Therapeutic Exercise,Balance Retraining,Discharge Planning, Neuromuscular Re-ed, Coordination Retraining Other Recommendations and Next Treatment ambulation using 4WW, FWW, Focus dynamic balance Recommendations To Nursing Amount of Assist Needed Standby Assistance Discharge Recommendations PT Discharge Recommendations Home with 11/03 Assist,Home Health Transportation Needs at Discharge Private Vehicle,Wheelchair/ Cabulance
[2020-08-10] MEDS: ENOXAPARIN 60 MG/0.6 ML SYRINGE SUBCUT (13:50)
--- NOTE | 2020-08-10 13:50 | OT.IP.EVAL ---
Current Diagnoses Heart failure, unspecified (08/08/20) Past Medical History (Last Updated 08/08/20 @ 18:23 by Yecenia Gold MD) Atrial fibrillation CHF (congestive heart failure) COPD (chronic obstructive pulmonary disease) Pacemaker Pneumonia Surgical History (Last Reviewed 08/08/20 @ 18:23 by Yecenia Gold MD) H/O aortic valve replacement Occupational Therapy Inpatient Evaluation/Re-Eval M1 PT/OT-IP Prior Functional Status Start: 08/10/20 14:45 Freq: NEEDED Status: Active Protocol: Document 08/10/20 13:15 [facility] (Rec: 08/10/20 15:05 [facility] [id number]) Medical Review Prior Functional Status Medical History Reviewed Yes Communication able to make needs known Mobility and Gait pt stated that she is modified independent with all mobilities and ambulation without AD Activities of Daily Living and IADL's Pt states only needing assist with showering and IADL needs. Social History Household Members caregiver Living Arrangements Apartment/Condo Number of Floors (Floors) One Floor Number of Stairs To Enter/Railing? 3rd floor apartment with elevator to get in Home Environment Standard Height Toilet,Walk in Shower,Tub/Shower,Built-In Shower Seat,Elevator Home Equipment Four Wheel Walker,Quad Cane, Grab Bars In Shower Additional Social History Comment pt stated that she has a live- in caregiver that can assist her has an adjustable bed M2 OT-IP Current Condition Start: 08/10/20 14:45 Freq: Status: Active Protocol: Document 08/10/20 13:15 [facility] (Rec: 08/10/20 15:05 [facility] [id number]) Occupational Therapy Current Condition Current Condition Evaluation Date 08/10/20 Treatment Diagnosis acute CHF Diagnosis Onset Date 08/08/20 M3 OT- IP Subjective and Pain Start: 08/10/20 14:45 Freq: Status: Active Protocol: Document 08/10/20 13:15 [facility] (Rec: 08/10/20 15:05 [facility] [id number]) OT- Subjective Occupational Therapy Visit Type Type Initial Evaluation Visit Start Time 13:15 Visit Stop Time 13:50 Total Visit Minutes 35 Occupational Therapy Visit Comments Patient Comments Initially pt not wanting to do OT eval as just finishing see PAPER FINISHER and agreed to do showering and OT eval with OT after lunch. Patient/Caregiver Goals To go home. OT Pain Assessment Pain When Pain Assessed At Rest Pain Present Pain Present Denied Pain M4 OT- IP ADL's Start: 08/10/20 14:45 Freq: Status: Active Protocol: Document 08/10/20 13:15 [facility] (Rec: 08/10/20 15:05 [facility] [id number]) OT [id number] General Evaluation Self-Feeding Ability Independent OT ADL-Grooming General Evaluation Grooming Ability Standby Assistance Areas Needing Assistance Retrieving/Set-up of Grooming Items OT ADL-Dressing General Eval Upper Body Dressing Ability Independent Lower Body Dressing Ability Standby Assistance Areas Needing Assistance Retrieving/Set-up of Clothing OT ADL-Toileting General Evaluation Toileting Ability Independent OT ADL-Bathing Bathing Type Bathing Type Shower General Evaluation Bathing Ability Minimal Assistance Areas Needing Assistance Wash/Dry Back Devices Bathing Equipment Hand Held Shower Sprayer, Shower Chair without Arms,Grab Bars Comments OT Bathing Comments Pt needing asisst to wash her back and needing use of grab bars for balance while washing her pericare needs. Pt states has suction cup grab bars at home. Educated for pt to double check to make sure/ test the suction cup grab bars are working each time before she needs to use it. Pt needing occasional cga for balance while standing to wash her hair. M5 OT- IP IADL's Start: 08/10/20 14:45 Freq: Status: Active Protocol: Document 08/10/20 13:15 [facility] (Rec: 08/10/20 15:05 [facility] [id number]) OT-Instrumental Activities of Daily Living Home Safety Awareness Awareness of Need for Assistance at Home Good Awareness Ability to Problem Solve Emergency Able to Problem Solve Situations Meal Preparation Meal Preparation Caregiver Provides Assist [employer] Truck [employer] Truck Driver Caregiver Provides Assist M6 OT- IP Functional Cognition Start: 08/10/20 14:45 Freq: Status: Active Protocol: Document 08/10/20 13:15 [facility] (Rec: 08/10/20 15:05 [facility] [id number]) Cognitive Factors Limiting Selfcare Function Cognitive Ability Level of Alertness Alert Patient Orientation Name,Age,Birthday,Month,Date, Year,Day of Week,Place, Situation Attention Span Ability Capable of Focused Attention, Capable of Sustained Attention Ability to Follow Commands Able to Follow Multi-Step Commands Memory Description No Deficits Noted Safety Awareness No Deficits Noted Problem Solving Ability Needs Assist to Identify Solutions Cognitive Comments Cognitive Assessment Comments Pt appears to be at baseline for cognitive needs. OT- Vision and Hearing OT- Hearing Assessment OT- Hearing Assessment WFL OT- Vision Assessment Visual Acuity Glasses All The Time M7 OT- IP Mobility and Balance Start: 08/10/20 14:45 Freq: Status: Active Protocol: Document 08/10/20 13:15 [facility] (Rec: 08/10/20 15:05 [facility] [id number]) OT-Transfer Assessment Sit to and From Stand Sit to and from Stand Standby Assistance Transfers Transfer Ability Standby Assistance,Contact Guard Assistance Technique Transfer Destination Bed,Shower Stall,Toilet Transfer Technique Stand Step Pivot Devices Transfer Assistive Devices None,Gait Belt,Front Wheeled Walker Comments Mobility Comments Pt able to appropriately manage O2 tubing during mobility needs. SBA with FWW , without use of FWW CGA as at times unsteady on her feet. OT- Gait Assessment Comments Gait Ability Comments SBA with fWW OT- Balance Assessment Sitting Balance and Reactions Static Sitting Balance Ability Normal Dynamic Sitting Balance Ability Normal Standing Balance and Reactions Static Standing Balance Ability Good Dynamic Standing Balance Ability Fair Comments Other Balance Tests/Deviations/Treatment Pt had loss of balance as did : not have her glasses on and misjudged the depth perception of the threshold of the shower and tripped and needing cga to help re-balance her. Pt states will have assist at home. M8 OT- IP Objective Assessments Start: 08/10/20 14:45 Freq: Status: Active Protocol: Document 08/10/20 13:15 [facility] (Rec: 08/10/20 15:05 [facility] [id number]) OT Gross Range of Motion Upper Extremity Range of Motion Assessment Within Functional Limits ROM Impairments WFl for ADL needs. OT-Muscle Tone Assessment Muscle Tone WNL Yes M9 OT- IP Assessment and Plan Start: 08/10/20 14:45 Freq: Status: Active Protocol: Document 08/10/20 13:15 [facility] (Rec: 08/10/20 15:05 [facility] [id number]) OT Summary Assessment and Plan Potential Rehabilitation Potential Good Analytic Complexity at Evaluation Low Summary OT Impairments Balance,Functional Mobility, Dressing,Toileting,Toilet Transfers,Shower Transfers, Activity Tolerance Progress Towards Goals Progressing Toward Goals Assessment Summary Pt low complexity and main barrier are decreased activity tolerance and dynamic balance and now needing use of FWW for safety. Pt looking to go home with assist and home health. Goals Grooming Goal Independent Dressing Goal Independent Toileting Goal Independent Bathing Goal Standby Assistance Toilet Transfer Goal Independent Shower Transfer Goal Independent Days to Meet Goals 2 Frequency of Treatment Frequency Of Treatment Once a Day Treatment Plan OT Treatment Plan ADL Training,Functional Mobility,Patient/Family Education,Discharge Planning Discharge Recommendations OT Discharge Recommendations Home with Assistance,Home Health Home Equipment Needs BSC may be beneficial Transportation Needs at Discharge Private Vehicle
--- NOTE | 2020-08-10 14:54 | CM.DPC ---
DCP Cont: Patient is being discharged home today. She has a caregiver that is going to pick her up. She is planning on going back home, and her caregiver will be picking up her oxygen equipment at her sister's. Respiratory Therapy will provide portable oxygen for her to take home. She uses [facility] for oxygen needs. Dr. Aguirre discussed home health services with patient. Patient indicated that she has used [facility] before. Confirmed with patient. Called Emeka at [facility], stated, since it's nursing, we can probably be in there sooner. P: Faxed [facility] face to face, orders, and H&P, pending discharge summary. Radha, public services assistant, will fax DC summary to [facility] when completed. Sara Yung RN/Information Technology Program Manager
--- NOTE | 2020-08-10 14:59 | CM.DPNOTE ---
Faxed clinicals, order and face to face, fs to [facility] per Sasha. Radha Mcdowell CM Asst.
--- NOTE | 2020-08-10 15:35 | PM.DS.1 ---
History of Present Illness History of Present Illness Date Patient Seen: 08/08/20 Chief complaint: SOB Narrative: Written by Dr. Gold: The patient is a 60-year-old female with a history of congenital heart disease, mechanical aortic valve, history of chronic respiratory failure secondary to COPD on 3 L of home oxygen , chronic atrial fibrillation pacemaker placement who was discharged from [facility] 2 days ago after treatment of pneumonia and COPD. The patient was hospitalized at [facility] 07 28 for COPD. The patient received 1 week of levofloxacin. On 07/28 her x-ray showed no infiltrate. She presented to the hospital again for increasing shortness of breath and chest pain. The patient received a GI cocktail without improvement. She got 2 mg of morphine which helped. Her chest x-ray at that time showed a new infiltrate in the right lower lobe and right middle lobe. Her proBNP was improved at 1000. She had a normal white count. She was admitted to the hospital at [facility] for further evaluation. In the hospital she was treated with antibiotics for pneumonia. She was also given prednisone for COPD exacerbation. The patient was discharged home on doxycycline cefdinir and prednisone. She reports she has not picked up those medications. She presented to [facility] with a complaint of increased swelling, orthopnea, and shortness of breath. At [facility] her chest x-ray was essentially unchanged. However her proBNP was elevated at 3700. She was given 1 dose of Lasix. She remained short of breath and tachypneic. She was admitted to the hospital for further evaluation. In the emergency room an EKG was obtained. She has a ventricular paced rhythm with occasional PVCs. The patient's primary care providers Dr. Carbajal and program director group work is Dr. Vidal at [facility]. She is admitted to the hospital for further evaluation. Patient has chronic blurred vision, but denies headache, nausea, vomiting. She has had orthopnea shortness of breath. She denies any palpitations or chest pain. She has had no hematemesis melena or bright red blood per rectum. Patient reports recent hospitalization showed an ulcer in her abdomen. She denies any dysuria hematuria or pyuria. Further review of system is negative. Discharge Providers Provider Date of admission: 08/08/20 14:35 Discharge Date: 08/10/20 Consults: 08/08/20 10:35 Consult to Respiratory Therapy Evaluate & Treat Comment: Physician Instructions: Evaluate and treat 08/08/20 18:01 Consult to Occupational Therapy Evaluate & Treat Comment: Physician Instructions: Evaluate and treat Consult to Physical Therapy Evaluate & Treat Comment: Physician Instructions: Evaluate and Treat 08/10/20 14:51 Consult to Home Health Routine Comment: Reason For Exam: Home Health RN, P.T, O.T. Discharge provider: Yamileth Aguirre DO Summary Hospital Course Discharge Diagnosis: 1. Acute systolic congestive heart failure exacerbation, present on admission. Resolved. 2. Acute on chronic hypoxemic and hypercarbic respiratory failure, secondary to COPD exacerbation, present on admission. Acute portion resolved. 3. Recent right middle lobe pneumonia, present on admission. Resolved. 4. Chronic atrial fibrillation, status post pacemaker, present on admission. Stable. 5. Hyperlipidemia, chronic, present on admission. Stable. 6. History of mechanical aortic valve. 7. Depression, chronic, present on admission. Stable. 8. Chronic pain back pain with opiate dependence, present on admission. Stable. 9. Tobacco dependence, chronic, present on admission. Stable. 10. GERD, chronic, present on admission. Stable. Hospital Course: Francia Gill is a 60-year-old female with a past medical history significant for congenital heart disease, mechanical aortic valve, history of chronic respiratory failure secondary to COPD on 3 L of home oxygen, chronic atrial fibrillation with pacemaker who was discharged from [facility] 2 days ago after treatment of pneumonia and COPD who presented to ED with progressive worsening shortness of breath and lower extremity edema. 1. Acute systolic congestive heart failure exacerbation, present on admission. Resolved. -Patient recently hospitalized at [facility] x 6 days for treatment of pneumonia and COPD and which patient received IV fluid hydration throughout hospitalization. Patient presented with progressive worsening shortness of breath and lower extremity edema. Patient is followed by Dr. Vidal of cardiology at [facility]. -ProBNP elevated at 3790 which was previously over 1000 at [facility]. -Chest x-ray demonstrated right medial lung consolidation unchanged. -CTA chest negative for pulmonary embolus or aortic dissection. Noted, enlarged pulmonary arteries suggest pulmonary artery hypertension, marked cardiomegaly, CAD, small right pleural effusion, airway thickening suggestive of nonspecific bronchitis and/or reactive airways disease. -Echocardiogram demonstrated not significantly changed with EF 45 %. -Continued strict I&Os and daily weights. Net - 1 L. -Received furosemide 40 mg IV x1 in ED. Continued furosemide 40 mg IV twice daily then restarted home furosemide 20 mg daily. 2. Acute on chronic hypoxemic and hypercarbic respiratory failure, secondary to COPD exacerbation, present on admission. Acute portion resolved. -ABG demonstrated compensated respiratory acidosis with pCO2 62 on admission. Patient received Ambien with acute worsening hypercarbic respiratory failure. Patient has been instructed in the past to never use Ambien due to worsening respiratory failure. -Received methylprednisolone 125 mg IV x1 in ED and prednisone 40 mg daily x2 doses. -Continued respiratory therapy evaluation and treatment. Continued DuoNebs and Pulmicort inhaler. Continued supplemental oxygen as necessary to maintain oxygen saturations 88-92%. Patient has home oxygen requirement of 3-4 L baseline. Do not want her over oxygenate patient as this will precipitate hypercarbia. Patient previously had CPAP for JEMIMA but does not use her machine frequently as she removes the mask during sleep. Qualified patient for home trilogy through her oxygen company [employer] as patient requires noninvasive ventilator due to severity of COPD and chronic hypoxemic and hypercarbic respiratory failure as BiPAP is deemed insufficient. 3. Recent right middle lobe pneumonia, present on admission. Resolved. -Chest x-ray demonstrated right medial lung consolidation unchanged. -Patient is afebrile with a normal white count. -COVID negative and respiratory PCR negative. -Continued previously prescribed course of cefdinir 300 mg twice daily and doxycycline 100 mg twice daily for 10 days total of antibiotic treatment which was finished during hospitalization (previously received 6 days at [facility]). 4. Chronic atrial fibrillation, status post pacemaker, present on admission. Stable. -CTA chest negative for PE. -Venous Doppler ultrasound of bilateral lower extremities negative for DVT. -Continued home amiodarone 100 mg daily and metoprolol succinate 50 mg twice daily. -Continued home warfarin 5 mg daily and bridged with therapeutic Lovenox 60 mg every 12 hours. INR subtherapeutic at 1.2. Continued to monitor INR daily. Recommended continued INR checks at home. 5. Hyperlipidemia, chronic, present on admission. Stable. -Continued home pravastatin 80 mg daily at bedtime. 6. History of mechanical aortic valve. -Continued home warfarin 5 mg daily. Continued to monitor INR daily and patient remained subtherapeutic at 1.2. Bridged warfarin with therapeutic Lovenox 60 mg every 12 hours which patient will continue at home until INR is therapeutic between 2.5-3.5. Continue outpatient warfarin management per PCP. 7. Depression, chronic, present on admission. Stable. -Continued home duloxetine 60 mg daily. 8. Chronic pain back pain with opiate dependence, present on admission. Stable. -Continued home hydrocodone 10-325 mg every 6 hours as needed for pain and was cautious with narcotic administration with concurrent respiratory failure as this will precipitate risk of complication and/or . 9. Tobacco dependence, chronic, present on admission. Stable. -Patient reports she smokes 0.5 ppd day. -Continued Nicoderm patch 21 mg daily to avoid nicotine withdrawal and discharged with prescription. -Counseled patient extensively on smoking cessation. Patient reports she is trying to quit. 10. GERD, chronic, present on admission. Stable. -Patient reports that she was diagnosed with ulceration (unknown if esophageal or peptic) during hospitalization at [facility]. -Continued home pantoprazole of 40 mg daily. Exam Vital Signs (past 8 hours): - 08/10/20 08:00 08/10/20 08:30 08/10/20 08:40 Temperature 97.6 F Pulse Rate 70 71 Respiratory Rate 15 Blood Pressure 90/50 L Pulse Oximetry 95 95 94 08/10/20 09:00 08/10/20 09:37 08/10/20 11:31 Temperature Pulse Rate 70 70 70 Respiratory Rate 16 Blood Pressure 81/61 L 90/52 L Pulse Oximetry 98 96 08/10/20 13:00 Temperature 97.5 F L Pulse Rate 69 Respiratory Rate 18 Blood Pressure 90/51 L Pulse Oximetry 96 Fraction of Inspired Oxygen 35 Oxygen Delivery Method Nasal Cannula Oxygen Flow Rate 0 Narrative Exam Narrative: General: Older thin frail-appearing female lying in bed and in no acute distress, appears older than stated age and chronically ill, appropriately interactive. HEENT: Normocephalic, atraumatic. External ears without defect. Pupils equal, round, and reactive to light. Anicteric sclerae, moist conjunctivae, and no lid lag. Oropharynx free of erythema and cobble stoning with moist mucosa. Edentulous. Neck: Supple with full range of motion. No jugular venous distension. No lymphadenopathy or thyromegaly. Cardiovascular: Regular rate and rhythm without murmurs, rubs, or gallops appreciated. Pulmonary: Diminished throughout but clear to auscultation bilaterally. No crackles, wheezes or rhonchi. Normal respiratory effort with no use of accessory muscles. Abdomen: Soft, bowel sounds present, nontender, nondistended. No hepatosplenomegaly or masses appreciated. Extremities: No clubbing, cyanosis, or edema (previous mild bilateral pitting edema resolved). Skin: Normal temperature, turgor, and texture; no rash, ulcers, or subcutaneous nodules appreciated. Neurological: Cranial nerves grossly intact. Psychiatric: Somnolent but arousable. Normal mood and affect. Alert and oriented to person, place, and time. Poor insight. Objective Labs Result Diagrams: 08/10/20 04:45 08/10/20 04:45 Labs: Laboratory Results - last 24 hr 08/10/20 08/10/20 08/10/20 04:45 04:45 09:12 WBC 4.4 L RBC 3.54 L Hgb 9.9 L Hct 31.3 L MCV 88.5 MCH 28.1 MCHC 31.7 RDW 17.9 H Plt Count 101 L Neut % (Auto) 65.8 Lymph % (Auto) 21.8 L [place] % (Auto) 11.0 Eos % (Auto) 0.5 L Baso % (Auto) 0.9 Neut # (Auto) 2900 Lymph # (Auto) 1000 L [place] # (Auto) 500 Eos # (Auto) 0 Baso # (Auto) 0 Plt Morphology Comment Giant RBC Morphology Not Reportable PT 14.3 H INR 1.2 Sodium 133 L Potassium 3.6 Chloride 86 L Carbon Dioxide 48 H* BUN 17 Creatinine 0.42 L Estimated GFR > 60.0 BUN/Creatinine Ratio 40.5 H Glucose 111 H Calcium 8.5 Magnesium 1.4 L PFSH Medical History (Updated 08/08/20 @ 18:23 by Yecenia Gold MD) Atrial fibrillation CHF (congestive heart failure) COPD (chronic obstructive pulmonary disease) Pacemaker Pneumonia Surgical History H/O aortic valve replacement Family History (Updated 08/08/20 @ 18:24 by Yecenia Gold MD) Mother Pulmonary fibrosis Social History household members: caregiver Smoking Status: Current every day smoker Discharge Plan Discharge Plan Patient Disposition: Home Health Service Transfer to: [facility] Provider Discharge Comment: You are being discharged home with home health for physical therapy, occupational therapy, and nursing needs. You had an exacerbation of your heart failure due to fluid overload from previous hospitalization. You have received IV diuresis. Continue home furosemide 20 mg daily. You have completed full course of treatment for pneumonia and COPD exacerbation. You have hypercarbic respiratory failure or carbon dioxide retention due to your lung disease. Carbon dioxide is toxic and can place you in a coma or cause . You have been qualified for trilogy which your oxygen company will be delivering in the next 1-2 days to help you exchange carbon dioxide with environment. Please wear trilogy while napping or sleeping for as long as can be tolerated. Please try to cut back and quit smoking indefinitely. You have been started on Lovenox injection 60 mg every 12 hours until your warfarin is therapeutic with INR 2.5-3.5. Please follow-up with your PCP, Dr. Carbajal, regarding your hospitalization. Discharge orders & Medications Prescriptions: New melatonin 3 mg Tablet 6 mg PO BEDTIME Qty: 60 RF: 0 pantoprazole 40 mg Tablet,Delayed Release (Dr/Ec) 40 mg PO DAILY@0700 Qty: 30 RF: 0 nicotine 21 mg/24 hr Patch 24 Hour 21 mg topical 2100 Qty: 30 RF: 0 enoxaparin [Lovenox] 60 mg/0.6 mL Syringe 60 mg SUBCUT BID Qty: 6 RF: 0 Continued warfarin 5 mg tablet 5 mg PO DAILY RF: 0 albuterol sulfate [ProAir HFA] 90 mcg/actuation HFA aerosol inhaler 2 puff INHALATION PRN PRN (Reason: Shortness Of Breath) RF: 0 duloxetine [Cymbalta] 60 mg Capsule,Delayed Release(Dr/Ec) 60 mg PO DAILY RF: 0 acetaminophen 500 mg Capsule 1,000 mg PO BID RF: 0 amiodarone 100 mg Tablet 100 mg PO DAILY RF: 0 hydrocodone-acetaminophen [[place]] 10-325 mg Tablet 1 tab PO Q6H PRN (Reason: pain) RF: 0 metoprolol succinate 50 mg Tablet Extended Release 24 Hr 50 mg PO BID RF: 0 potassium chloride 20 mEq Tablet,Er Particles/Crystals 20 meq PO DAILY RF: 0 pravastatin 80 mg Tablet 80 mg PO BEDTIME RF: 0 ipratropium bromide 0.03 % [place],Non-Aerosol 2 spray INTRANASAL BID RF: 0 magnesium oxide 400 mg magnesium Tablet 400 mg PO BID RF: 0 furosemide 20 mg Tablet 20 mg PO DAILY Qty: 30 RF: 0 Follow up/Referrals: Leif Carbajal MD [Non-Staff] - 1 Week Diet/Activity/Treatments Diet: Low-fat, Low-sodium and Low-cholesterol Diet comment: 1.5 L fluid restriction Activity: Activity as tolerated with walker and physical and occupational therapy Oxygen: Continuous 3-4 L, trilogy while napping or sleeping as long as tolerated Visit Report/Discharge Packet Instructions: The Mediterranean Diet and Good Health, DI for Heart Failure, Fluid Restricted Diet, DI for Respiratory Failure, Enoxaparin Injection
--- NOTE | 2020-08-10 15:52 | PC.NURSE ---
Patient aware of discharge and agreeable. Patient with all belongings, denied having meds in our pharmacy or valuables in hospital safe. Education and discharge paperwork went over and given to patient. Patient escorted by hospital staff via wheelchair down to ride.
== END 2020-08-10 15:55 | disposition home or self-care (01) | DRG 291 ==
LOC: ED 14:29 → AC 15:11 → ICU 08-09 11:05 → AC 08-09 11:55 → ICU 08-09 12:02 → AC 08-10 15:44
PROVIDERS: Internal Medicine; Nurse Practitioner Adult Health; Admitting Provider Internal Medicine; Emergency Provider Emergency Medicine; Referring Provider Emergency Medicine; Visit Provider Internal Medicine
DX: I50.21 Acute systolic (congestive) heart failure (principal); J18.9 Pneumonia, unspecified organism; J96.22 Acute and chronic respiratory failure with hypercapnia; J96.21 Acute and chronic respiratory failure with hypoxia; I48.20 Chronic atrial fibrillation, unspecified; J44.1 Chronic obstructive pulmonary disease with (acute) exacerbation; F11.20 Opioid dependence, uncomplicated; Z95.2 Presence of prosthetic heart valve; F17.210 Nicotine dependence, cigarettes, uncomplicated; F32.9 Major depressive disorder, single episode, unspecified; Z99.81 Dependence on supplemental oxygen; Z79.01 Long term (current) use of anticoagulants; Z95.0 Presence of cardiac pacemaker; E78.5 Hyperlipidemia, unspecified; G89.29 Other chronic pain; Z66 Do not resuscitate; K21.9 Gastro-esophageal reflux disease without esophagitis; M79.89 Other specified soft tissue disorders; Z20.828 Contact with and (suspected) exposure to other viral communicable diseases
CPT/HCPCS: 36415; 36600; 71045; 71275; 80048; 80053; 81003; 81015; 82550; 82805; 83605; 83735; 83880; 84145; 84484; 85025; 85379; 85610; 85730; 87040; 87633; 87635; 87797; 93005; 93306; 93970; 94640; 94660; 94760; 94762; 96365; 96366; 96375; 97162; 97165; 97530; 97535; 99284; 99285; A9270; J1650; J1940; J2270; J2310; J2405; J2930; Q9967